=== PATIENT | female | born 1955 | race Caucasian/White ===

== ENCOUNTER 2018-01-24 10:42 | Emergency (ER) | payer OTHER, SELFPAY ==
[2018-01-24 10:45] VITALS: BP 141/70; PULSE 72; RESP 14; TEMP 36.9; O2SAT 98; BMI 22.1
--- NOTE | 2018-01-24 12:28 | ED.DENTAL ---
HPI - Dental/Oral <Ana Mcfadden PA-C - Last Filed: 01/24/18 21:42> General Chief complaint: Dental/Oral Stated complaint: Throat pain r/o perionsilar abscess Time Seen by Provider: 01/24/18 11:44 Source: patient Mode of arrival: ambulatory Limitations: no limitations History of Present Illness HPI Narrative: This 62-year-old female states that she was sent by her PCP office today due to to concern for peritonsillar abscess. She states that she had a strep test there but was not told the results. She states that 4 days ago, she had onset of mild sore throat that progressively worsened. She noted that her uvula was swollen on the right side of her throat looks swollen. She states that this seemed quite a bit worse yesterday and she thinks it might have drained some overnight because it looks better today. She states that she has had some sinus pressure and a little bit of left-sided earache. She states that her voice has seemed lower and somewhat muffled, however she has not had any dyspnea, states that she is able to swallow normally though it is painful. She has not had any fever, chills, or sweats. She states she has a very mild dry cough like a ?tickle?, no wheezing or other new symptoms with this. She states that she was traveling on a road trip by car in the [facility] when this started, no other recent travel and no known exposures. Related Data Home Medications Medication Instructions Recorded Confirmed Allerclear 1 tab PO DIRECTED 01/24/18 01/24/18 Mood Free 1 dose PO DIRECTED 01/24/18 01/24/18 Vitamin B-12 1 tab PO DIRECTED 01/24/18 01/24/18 Vitamin D 1 tab PO DIRECTED 01/24/18 01/24/18 flaxseed oil 1 dose PO DIRECTED 01/24/18 01/24/18 Previous Rx's Medication Instructions Recorded clindamycin HCl 300 mg PO QID #40 cap 01/24/18 dexamethasone [Decadron] 4 mg PO Q12H #10 tab 01/24/18 Allergies Allergy/AdvReac Type Severity Reaction Status Date / Time Sulfa (Sulfonamide Allergy Intermediate Rash Unverified 01/24/18 12:48 Antibiotics) Review of Systems <TAYLOR Marrufo Last Filed: 01/24/18 21:42> Review of Systems All systems reviewed & are unremarkable except as noted in HPI and below Exam <Ana Mcfadden PA-C - Last Filed: 01/24/18 21:42> Narrative Exam Narrative: GENERAL APPEARANCE: Patient sitting comfortably, in no distress. Appears well. HEAD: Minimal generalized sinus TTP. EYES: PERRL, EOMI. EARS: Normal auditory canals, TMS intact with dull light reflexes. ORAL CAVITY: Normal oropharynx. THROAT: Erythematous on the right with edematous tonsil, no clear drainage or exudate, uvula is midline, left side is normal. Voice sounds slightly scratchy but not muffled on exam NECK/THYROID: Neck supple, full range of motion, few anterior cervical nodes LUNGS: Clear to auscultation bilaterally, no cough on exam. HEART: RRR without murmur, nl S1, S2, no S3 or S4. DERM: No exanthem EXTR: No cyanosis or edema Initial Vital Signs Initial Vital Signs: Vital Signs Temperature 98.4 F 01/24/18 10:45 Pulse Rate 72 01/24/18 10:45 Respiratory Rate 14 01/24/18 10:45 Blood Pressure 141/70 H 01/24/18 10:45 Pulse Oximetry 98 01/24/18 10:45 <Steph Hsu DO - Last Filed: 01/25/18 07:35> Initial Vital Signs Initial Vital Signs: Vital Signs Temperature 98.4 F 01/24/18 10:45 Pulse Rate 72 01/24/18 10:45 Respiratory Rate 14 01/24/18 10:45 Blood Pressure 141/70 H 01/24/18 10:45 Pulse Oximetry 98 01/24/18 10:45 Course <TAYLOR Marrufo Last Filed: 01/24/18 21:42> Additional Information: Patient was given IV clindamycin and Decadron here. She reported significant improvement, and tonsillar edema had improved at the time of discharge. She is agreeable with continuing antibiotics and steroids over the weekend and agrees to return if any acutely worsening symptoms, otherwise we have arranged for follow-up with [facility] on Saturday Orders Ordered: Discontinued Medications Clindamycin Phosphate (Cleocin) 900 mg in 50 mls @ 50 mls/hr IV NOW ONE Stop: 01/24/18 13:43 Last Infusion: 01/24/18 14:58 Dose: 0 mls/hr Admin: 01/24/18 13:48 Dose: 50 mls/hr Dexamethasone 20 mg/ Sodium (Chloride) 52 mls @ 208 mls/hr IV NOW ONE Stop: 01/24/18 12:45 Last Infusion: 01/24/18 13:47 Dose: 0 mls/hr Admin: 01/24/18 13:25 Dose: 208 mls/hr Sodium Chloride (Normal Saline 0.9%) 1,000 mls @ 1,000 mls/hr IV BOLUS ONE Stop: 01/24/18 13:43 Last Infusion: 01/24/18 15:08 Dose: 0 mls/hr Admin: 01/24/18 13:18 Dose: 1,000 mls/hr Ketorolac Tromethamine (Toradol) 15 mg IV NOW ONE Stop: 01/24/18 12:45 Last Admin: 01/24/18 13:19 Dose: 15 mg Vital Signs - 8 hr 01/24/18 14:51 Pulse Rate 61 Respiratory Rate 16 Blood Pressure [Right Arm] 115/71 Pulse Oximetry 100 <Steph Hsu, - Last Filed: 01/25/18 07:35> Orders Ordered: Discontinued Medications Clindamycin Phosphate (Cleocin) 900 mg in 50 mls @ 50 mls/hr IV NOW ONE Stop: 01/24/18 13:43 Last Infusion: 01/24/18 14:58 Dose: 0 mls/hr Admin: 01/24/18 13:48 Dose: 50 mls/hr Dexamethasone 20 mg/ Sodium (Chloride) 52 mls @ 208 mls/hr IV NOW ONE Stop: 01/24/18 12:45 Last Infusion: 01/24/18 13:47 Dose: 0 mls/hr Admin: 01/24/18 13:25 Dose: 208 mls/hr Sodium Chloride (Normal Saline 0.9%) 1,000 mls @ 1,000 mls/hr IV BOLUS ONE Stop: 01/24/18 13:43 Last Infusion: 01/24/18 15:08 Dose: 0 mls/hr Admin: 01/24/18 13:18 Dose: 1,000 mls/hr Ketorolac Tromethamine (Toradol) 15 mg IV NOW ONE Stop: 01/24/18 12:45 Last Admin: 01/24/18 13:19 Dose: 15 mg Vital Signs - 8 hr 01/24/18 14:51 Pulse Rate 61 Respiratory Rate 16 Blood Pressure [Right Arm] 115/71 Pulse Oximetry 100 MDM - Dental/Oral <Ana Mcfadden PA-C - Last Filed: 01/24/18 21:42> Lab Data Attestation: I reviewed the patient's lab results. Result diagrams: 01/24/18 13:01 01/24/18 13:01 Lab Results 01/24/18 01/24/18 Range/Units 13: 13:01 WBC 10.4 (4.5-11.0) X10^3/uL RBC 4.32 (4.0-5.2) X10^6/uL Hgb 13.0 (12.0-16.0) g/dL Hct 39.0 (36-46) % MCV 90.3 (80-100) fL MCH 30.2 (26-34) PG MCHC 33.4 (30-36) % RDW 12.9 (11.6-14.8) % Plt Count 169 (150-400) X10^3/uL Neut % (Auto) 78.2 H (50-75) % Lymph % (Auto) 13.8 L (25-40) % [place] % (Auto) 6.8 (3-14) % Eos % (Auto) 0.5 L (2-4) % Baso % (Auto) 0.7 (0-2) % Neut # (Auto) 8100 H (3865-6458) /uL Sodium 142 (137-145) mmol/L Potassium 4.1 (3.4-5.1) mmol/L Chloride 105 (98-107) mmol/L Carbon Dioxide 29 (22-32) mmol/L BUN 15 (7-17) mg/dL Creatinine 0.70 (0.52-1.04) mg/dL Estimated GFR > 60.0 (>60) mL/min BUN/Creatinine Ratio 21.4 (6-22) Glucose 87 (80-110) mg/dL Calcium 9.2 (8.4-10.2) mg/dL <Steph Hsu DO - Last Filed: 01/25/18 07:35> Lab Data Lab Results 01/24/18 01/24/18 Range/Units 13:01 13:01 WBC 10.4 (4.5-11.0) X10^3/uL RBC 4.32 (4.0-5.2) X10^6/uL Hgb 13.0 (12.0-16.0) g/dL Hct 39.0 (36-46) % MCV 90.3 (80-100) fL MCH 30.2 (26-34) PG MCHC 33.4 (30-36) % RDW 12.9 (11.6-14.8) % Plt Count 169 (150-400) X10^3/uL Neut % (Auto) 78.2 H (50-75) % Lymph % (Auto) 13.8 L (25-40) % [place] % (Auto) 6.8 (3-14) % Eos % (Auto) 0.5 L (2-4) % Baso % (Auto) 0.7 (0-2) % Neut # (Auto) 8100 H (0439-2678) /uL Sodium 142 (137-145) mmol/L Potassium 4.1 (3.4-5.1) mmol/L Chloride 105 (98-107) mmol/L Carbon Dioxide 29 (22-32) mmol/L BUN 15 (7-17) mg/dL Creatinine 0.70 (0.52-1.04) mg/dL Estimated GFR > 60.0 (>60) mL/min BUN/Creatinine Ratio 21.4 (6-22) Glucose 87 (80-110) mg/dL Calcium 9.2 (8.4-10.2) mg/dL Discharge Plan Departure Patient Disposition: Home, Self-Care Clinical Impression: Abscess, peritonsillar Discharge Date/Time: 01/24/18 15:23 Interventions: ED Discharge Assessment Last Done: 01/24/18 15:13 Instructions: DI for Peritonsillar Abscess -- Adult Activity Restrictions/Additional Instructions: You appear to be improving today, but please return to the closest ED as we discussed if you have any acutely worsening symptoms over the weekend. You have a follow-up scheduled at [facility] in [place], 1 o'clock check in on Saturday. Please be sure to bring your ID and insurance. You should take your next dose of oral antibiotic this evening and continued tomorrow morning. You can start the oral steroids tomorrow morning. Prescriptions: New clindamycin HCl 300 mg capsule 300 mg PO QID Qty: 40 RF: 0 dexamethasone [Decadron] 4 mg tablet 4 mg PO Q12H Qty: 10 RF: 0 No Action Allerclear 1 tab PO DIRECTED RF: 0 Mood Free 1 dose PO DIRECTED RF: 0 Vitamin B-12 1 tab PO DIRECTED RF: 0 Vitamin D 1 tab PO DIRECTED RF: 0 flaxseed oil 1 dose PO DIRECTED RF: 0 Referrals: [facility] [Provider Group] Emma Montgomery ARNP [Primary Care Provider] - <Steph Hsu DO - Last Filed: 01/25/18 07:35> Cosign ED Attending Chandrakant Attestation: I was immediately available in the department for consultation. Documentation has been reviewed. I agree with assessment and plan.
--- NOTE | 2018-01-24 12:51 | ED_ITS ---
HPI - Dental/Oral <Ana cMfadden PA-C - Last Filed: 01/24/18 21:42> General Chief complaint: Dental/Oral Stated complaint: Throat pain r/o perionsilar abscess Time Seen by Provider: 01/24/18 11:44 Source: patient Mode of arrival: ambulatory Limitations: no limitations History of Present Illness HPI Narrative: This 62-year-old female states that she was sent by her PCP office today due to to concern for peritonsillar abscess. She states that she had a strep test there but was not told the results. She states that 4 days ago , she had onset of mild sore throat that progressively worsened. She noted that her uvula was swollen on the right side of her throat looks swollen. She states that this seemed quite a bit worse yesterday and she thinks it might have drained some overnight because it looks better today. She states that she has had some sinus pressure and a little bit of left-sided earache. She states that her voice has seemed lower and somewhat muffled, however she has not had any dyspnea, states that she is able to swallow normally though it is painful. She has not had any fever, chills, or sweats. She states she has a very mild dry cough like a ?tickle?, no wheezing or other new symptoms with this. She states that she was traveling on a road trip by car in the [facility] when this started, no other recent travel and no known exposures. Related Data Home Medications Medication Instructions Recorded Confirmed Allerclear 1 tab PO DIRECTED 01/24/18 01/24/18 Mood Free 1 dose PO DIRECTED 01/24/18 01/24/18 Vitamin B-12 1 tab PO DIRECTED 01/24/18 01/24/18 Vitamin D 1 tab PO DIRECTED 01/24/18 01/24/18 flaxseed oil 1 dose PO DIRECTED 01/24/18 01/24/18 Previous Rx's Medication Instructions Recorded clindamycin HCl 300 mg PO QID #40 cap 01/24/18 dexamethasone [Decadron] 4 mg PO Q12H #10 tab 01/24/18 Allergies Allergy/AdvReac Type Severity Reaction Status Date / Time Sulfa (Sulfonamide Allergy Intermediate Rash Unverified 01/24/18 12:48 Antibiotics) Review of Systems <TAYLOR Marrufo Last Filed: 01/24/18 21:42> Review of Systems All systems reviewed & are unremarkable except as noted in HPI and below Exam <Ana Mcfadden PA-C - Last Filed: 01/24/18 21:42> Narrative Exam Narrative: GENERAL APPEARANCE: Patient sitting comfortably, in no distress. Appears well. HEAD: Minimal generalized sinus TTP. EYES: PERRL, EOMI. EARS: Normal auditory canals, TMS intact with dull light reflexes. ORAL CAVITY: Normal oropharynx. THROAT: Erythematous on the right with edematous tonsil, no clear drainage or exudate, uvula is midline, left side is normal. Voice sounds slightly scratchy but not muffled on exam NECK/THYROID: Neck supple, full range of motion, few anterior cervical nodes LUNGS: Clear to auscultation bilaterally, no cough on exam. HEART: RRR without murmur, nl S1, S2, no S3 or S4. DERM: No exanthem EXTR: No cyanosis or edema Initial Vital Signs Initial Vital Signs: Vital Signs Temperature 98.4 F 01/24/18 10:45 Pulse Rate 72 01/24/18 10:45 Respiratory Rate 14 01/24/18 10:45 Blood Pressure 141/70 H 01/24/18 10:45 Pulse Oximetry 98 01/24/18 10:45 <Steph Hsu DO - Last Filed: 01/25/18 07:35> Initial Vital Signs Initial Vital Signs: Vital Signs Temperature 98.4 F 01/24/18 10:45 Pulse Rate 72 01/24/18 10:45 Respiratory Rate 14 01/24/18 10:45 Blood Pressure 141/70 H 01/24/18 10:45 Pulse Oximetry 98 01/24/18 10:45 Course <TAYLOR Marrufo Last Filed: 01/24/18 21:42> Additional Information: Patient was given IV clindamycin and Decadron here. She reported significant improvement, and tonsillar edema had improved at the time of discharge. She is agreeable with continuing antibiotics and steroids over the weekend and agrees to return if any acutely worsening symptoms, otherwise we have arranged for follow-up with [facility] on Saturday Orders Ordered: Discontinued Medications Clindamycin Phosphate (Cleocin) 900 mg in 50 mls @ 50 mls/hr IV NOW ONE Stop: 01/24/18 13:43 Last Infusion: 01/24/18 14:58 Dose: 0 mls/hr Admin: 01/24/18 13:48 Dose: 50 mls/hr Dexamethasone 20 mg/ Sodium (Chloride) 52 mls @ 208 mls/hr IV NOW ONE Stop: 01/24/18 12:45 Last Infusion: 01/24/18 13:47 Dose: 0 mls/hr Admin: 01/24/18 13:25 Dose: 208 mls/hr Sodium Chloride (Normal Saline 0.9%) 1,000 mls @ 1,000 mls/hr IV BOLUS ONE Stop: 01/24/18 13:43 Last Infusion: 01/24/18 15:08 Dose: 0 mls/hr Admin: 01/24/18 13:18 Dose: 1,000 mls/hr Ketorolac Tromethamine (Toradol) 15 mg IV NOW ONE Stop: 01/24/18 12:45 Last Admin: 01/24/18 13:19 Dose: 15 mg Vital Signs - 8 hr 01/24/18 14:51 Pulse Rate 61 Respiratory Rate 16 Blood Pressure [Right Arm] 115/71 Pulse Oximetry 100 <Steph Hsu, - Last Filed: 01/25/18 07:35> Orders Ordered: Discontinued Medications Clindamycin Phosphate (Cleocin) 900 mg in 50 mls @ 50 mls/hr IV NOW ONE Stop: 01/24/18 13:43 Last Infusion: 01/24/18 14:58 Dose: 0 mls/hr Admin: 01/24/18 13:48 Dose: 50 mls/hr Dexamethasone 20 mg/ Sodium (Chloride) 52 mls @ 208 mls/hr IV NOW ONE Stop: 01/24/18 12:45 Last Infusion: 01/24/18 13:47 Dose: 0 mls/hr Admin: 01/24/18 13:25 Dose: 208 mls/hr Sodium Chloride (Normal Saline 0.9%) 1,000 mls @ 1,000 mls/hr IV BOLUS ONE Stop: 01/24/18 13:43 Last Infusion: 01/24/18 15:08 Dose: 0 mls/hr Admin: 01/24/18 13:18 Dose: 1,000 mls/hr Ketorolac Tromethamine (Toradol) 15 mg IV NOW ONE Stop: 01/24/18 12:45 Last Admin: 01/24/18 13:19 Dose: 15 mg Vital Signs - 8 hr 01/24/18 14:51 Pulse Rate 61 Respiratory Rate 16 Blood Pressure [Right Arm] 115/71 Pulse Oximetry 100 MDM - Dental/Oral <Ana Mcfadden PA-C - Last Filed: 01/24/18 21:42> Lab Data Attestation: I reviewed the patient's lab results. Result diagrams: 01/24/18 13:01 01/24/18 13:01 Lab Results 01/24/18 01/24/18 Range/Units 13: 13:01 WBC 10.4 (4.5-11.0) X10^3/uL RBC 4.32 (4.0-5.2) X10^6/uL Hgb 13.0 (12.0-16.0) g/dL Hct 39.0 (36-46) % MCV 90.3 (80-100) fL MCH 30.2 (26-34) PG MCHC 33.4 (30-36) % RDW 12.9 (11.6-14.8) % Plt Count 169 (150-400) X10^3/uL Neut % (Auto) 78.2 H (50-75) % Lymph % (Auto) 13.8 L (25-40) % [place] % (Auto) 6.8 (3-14) % Eos % (Auto) 0.5 L (2-4) % Baso % (Auto) 0.7 (0-2) % Neut # (Auto) 8100 H (2635-9138) /uL Sodium 142 (137-145) mmol/L Potassium 4.1 (3.4-5.1) mmol/L Chloride 105 (98-107) mmol/L Carbon Dioxide 29 (22-32) mmol/L BUN 15 (7-17) mg/dL Creatinine 0.70 (0.52-1.04) mg/dL Estimated GFR > 60.0 (>60) mL/min BUN/Creatinine Ratio 21.4 (6-22) Glucose 87 (80-110) mg/dL Calcium 9.2 (8.4-10.2) mg/dL <Steph Hsu DO - Last Filed: 01/25/18 07:35> Lab Data Lab Results 01/24/18 01/24/18 Range/Units 13:01 13:01 WBC 10.4 (4.5-11.0) X10^3/uL RBC 4.32 (4.0-5.2) X10^6/uL Hgb 13.0 (12.0-16.0) g/dL Hct 39.0 (36-46) % MCV 90.3 (80-100) fL MCH 30.2 (26-34) PG MCHC 33.4 (30-36) % RDW 12.9 (11.6-14.8) % Plt Count 169 (150-400) X10^3/uL Neut % (Auto) 78.2 H (50-75) % Lymph % (Auto) 13.8 L (25-40) % [place] % (Auto) 6.8 (3-14) % Eos % (Auto) 0.5 L (2-4) % Baso % (Auto) 0.7 (0-2) % Neut # (Auto) 8100 H (0602-8278) /uL Sodium 142 (137-145) mmol/L Potassium 4.1 (3.4-5.1) mmol/L Chloride 105 (98-107) mmol/L Carbon Dioxide 29 (22-32) mmol/L BUN 15 (7-17) mg/dL Creatinine 0.70 (0.52-1.04) mg/dL Estimated GFR > 60.0 (>60) mL/min BUN/Creatinine Ratio 21.4 (6-22) Glucose 87 (80-110) mg/dL Calcium 9.2 (8.4-10.2) mg/dL Discharge Plan Departure Patient Disposition: Home, Self-Care Clinical Impression: Abscess, peritonsillar Discharge Date/Time: 01/24/18 15:23 Interventions: ED Discharge Assessment Last Done: 01/24/18 15:13 Instructions: DI for Peritonsillar Abscess -- Adult Activity Restrictions/Additional Instructions: You appear to be improving today, but please return to the closest ED as we discussed if you have any acutely worsening symptoms over the weekend. You have a follow-up scheduled at [facility] in [place], 1 o' clock check in on Saturday. Please be sure to bring your ID and insurance. You should take your next dose of oral antibiotic this evening and continued tomorrow morning. You can start the oral steroids tomorrow morning. Prescriptions: New clindamycin HCl 300 mg capsule 300 mg PO QID Qty: 40 RF: 0 dexamethasone [Decadron] 4 mg tablet 4 mg PO Q12H Qty: 10 RF: 0 No Action Allerclear 1 tab PO DIRECTED RF: 0 Mood Free 1 dose PO DIRECTED RF: 0 Vitamin B-12 1 tab PO DIRECTED RF: 0 Vitamin D 1 tab PO DIRECTED RF: 0 flaxseed oil 1 dose PO DIRECTED RF: 0 Referrals: [facility] [Provider Group] Emma Montgomery ARNP [Primary Care Provider] - <Steph Hsu DO - Last Filed: 01/25/18 07:35> Cosign ED Attending Chandrakant Attestation: I was immediately available in the department for consultation. Documentation has been reviewed. I agree with assessment and plan.
[2018-01-24 13:09] LABS: Add Manual Diff / Slide Review NO; Basophils Percent Auto 0.7 % (0-2); Eosinophils Percent Auto 0.5 % (2-4); Lymphocytes Percent Auto 13.8 % (25-40); Mean Corpuscular HGB Conc 33.4 % (30-36); Mean Corpuscular Hemoglobin 30.2 PG (26-34); Mean Corpuscular Volume 90.3 fL (80-100); Monocytes Percent Auto 6.8 % (3-14); Neutrophils Absolute Auto 8100 /uL (3000-5900); Neutrophils Percent Auto 78.2 % (50-75); Platelet Count 169 X10^3/uL (150-400); Red Blood Cell Count 4.32 X10^6/uL (4.0-5.2); Red Cell Distribution Width 12.9 % (11.6-14.8); White Blood Cell Count 10.4 X10^3/uL (4.5-11.0)
[2018-01-24] MEDS: SODIUM CHLORIDE 0.9% 1,000 ML 1000 ML IV (13:18)
[2018-01-24] MEDS: KETOROLAC 15 MG/ML VIAL IV (13:19)
[2018-01-24 13:24] LABS: BUN Creatinine Ratio 21.4 (6-22); Blood Urea Nitrogen 15 mg/dL (7-17); Calcium 9.2 mg/dL (8.4-10.2); Carbon Dioxide 29 mmol/L (22-32); Chloride 105 mmol/L (98-107); Estimated Glomerular Filt Rate > 60.0 mL/min (>60); Glucose 87 mg/dL (80-110); HEMOLYSIS < 15 (0-50); Potassium 4.1 mmol/L (3.4-5.1); Sodium 142 mmol/L (137-145)
[2018-01-24] MEDS: DEXAMETHASONE 20 MG in SODIUM CHLORIDE 0.9% 50 ML 208 ML IV (13:25)
[2018-01-24] MEDS: CLINDAMYCIN 900 MG/50 ML PIGGYBACK 50 MG IV (13:48)
--- NOTE | 2018-01-24 14:22 | PC.NURSE ---
Placed call to [facility].- Spoke to front line leader regarding pt's strep test results. Received Negative result via fax. [employer] [facility] calling back to advise office that pt will need ENT follow up appt. Pt has [employer] and will need prior authorization.
--- NOTE | 2018-01-24 14:46 | PC.NURSE ---
[facility] called ENT office to make an appt for pt--SaturdayJanuary 27 at 1300. pt aware and provided with appt date, time, phone number, and what items to bring. Advised to call when they open that morning and verify address since there are two ENT offices in . Pt understands. IV Abx infusing with fluids. Pt reading magazine on stretcher, NAD and needs met at this time.
[2018-01-24 14:51] VITALS: BP 115/71; PULSE 61; RESP 16; O2SAT 100
== END 2018-01-24 15:23 | disposition home or self-care (01) ==
PROVIDERS: Emergency Provider Internal Medicine; Family Provider Nurse Practitioner Family; PCP Nurse Practitioner Family
DX: J36 Peritonsillar abscess (principal)
CPT/HCPCS: 36591; 80048; 85025; 87880; 96374; 96375; 99283; J1100; J1885

== ENCOUNTER → 2018-11-05 17:44 | Outpatient (CLI) | payer OTHER, SELFPAY ==
--- NOTE | 2018-11-05 | DI.RAD.S_ITS ---
PROCEDURE: XR CERVICAL SPINE 2V OR 3V INDICATIONS: NECK STRAIN TECHNIQUE: 3 view(s) of the cervical spine were acquired. COMPARISON: None. FINDINGS: Bones: No fractures or dislocations to the T1 level. The lateral masses of C1 appear intact on the odontoid view. No suspicious bony lesions. There is a moderate degree of degenerative disc disease at C3-4 and a moderately severe degree of degenerative disc disease to the T7 level. This is best seen on the lateral view. Facet osteoarthritis is moderate over these same areas. Soft tissues: No prevertebral soft tissue swelling. 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 No trauma found. No significant subluxation associated. Dictated by: Garrick Jackson M.D. on 11/06/2018 at 9:21 Approved by: Garrick Jackson M.D. on 11/06/2018 at 9:22
== END ==
PROVIDERS: Family Provider Nurse Practitioner Family; PCP Nurse Practitioner Family; Visit Provider Family Medicine
DX: S16.1XXA Strain of muscle, fascia and tendon at neck level, initial encounter (principal); M50.31 Other cervical disc degeneration, high cervical region; M47.812 Spondylosis without myelopathy or radiculopathy, cervical region
CPT/HCPCS: 72040

== ENCOUNTER → 2019-03-10 16:39 | Outpatient (CLI) | payer OTHER, SELFPAY ==
--- NOTE | 2019-03-10 | DI.RAD.S_ITS ---
PROCEDURE: XR T AND L SPINE 2 TO 3 VIEWS INDICATIONS: THORACIC BACK PAIN/SPINAL CURVATURE TECHNIQUE: 2 views acquired of the thoracolumbar spine. COMPARISON: None. FINDINGS: Bones: There are moderate multilevel degenerative changes of the thoracolumbar spine, worst in the lumbar region. There is levoscoliosis of the lumbar spine centered at L2 with a measured Sarkar angle of 23?. Soft tissues: Metallic densities project over the lower chest, midabdomen, and lower pelvis. IMPRESSION: 1. Moderate multilevel degenerative changes of the thoracolumbar spine. 2. Lumbar levoscoliosis with Sarkar angle of 23?. Dictated by: George Chew M.D. on 03/11/2019 at 11:32 Approved by: George Chew M.D. on 03/11/2019 at 11:38
== END ==
PROVIDERS: PCP Nurse Practitioner Family; Visit Provider Nurse Practitioner Family
DX: M54.5 Low back pain (principal); M43.9 Deforming dorsopathy, unspecified
CPT/HCPCS: 72082

== ENCOUNTER → 2019-05-25 15:44 | Outpatient (CLI) | payer OTHER, SELFPAY ==
--- NOTE | 2019-05-25 | DI.MRI.S_ITS ---
PROCEDURE: MR CERVICAL SPINE WO CON INDICATIONS: Neck pain TECHNIQUE: Noncontrast sagittal T1 spin echo and T2 fast spin echo, sagittal STIR, foraminal oblique sagittal T2 fast spin echo, and axial gradient echo or T2 fast spin echo through the cervical spine. COMPARISON: None. FINDINGS: Image quality: Excellent. Alignment and Curvature: There is loss of normal cervical lordosis. There is mild kyphosis at C3-C5. There is mild grade 1 retrolisthesis of C4 on C5. Mild grade 1 anterolisthesis of C7 on T1 and T1 on T2. Bone Marrow: Marrow demonstrates normal overall signal. There is mild reactive signal within the endplates adjacent to the C3-C4, C4-C5, C5-C6, and C6-C7 intervertebral discs. Spinal Cord: Visualized spinal cord has normal size and signal. No cerebellar tonsillar herniation. Paraspinous Soft Tissues: No paravertebral masses. Prevertebral soft tissues are normal in thickness. C2-C3: Moderate disc desiccation. Moderate left and mild right facet hypertrophy. No significant canal stenosis. Moderate left foraminal stenosis. No right foraminal stenosis. C3-C4: Moderate disc height loss and desiccation. Moderate diffuse disc bulge/osteophyte. Moderate facet and uncovertebral hypertrophy bilaterally, left greater than right. Moderate canal stenosis. Moderate left and mild right foraminal stenosis. C4-C5: Moderate disc height loss and desiccation. Moderate diffuse disc bulge/osteophyte. Moderate facet and uncovertebral hypertrophy bilaterally. Severe canal stenosis. Mild cord flattening. Severe bilateral foraminal stenosis. Bilateral C5 nerve root compression. C5-C6: Moderate disc height loss and desiccation. Mild diffuse disc bulge/osteophyte. Mild facet and uncovertebral hypertrophy bilaterally. Moderate canal stenosis. Severe left and moderate right foraminal stenosis. Left C6 nerve root compression. C6-C7: Severe disc height loss and desiccation. Moderate diffuse disc bulge. Mild facet and uncovertebral hypertrophy bilaterally. Moderate canal stenosis. Severe bilateral foraminal stenosis. Bilateral C7 nerve root compression. C7-T1: Moderate disc height loss and desiccation. Mild diffuse disc bulge. Mild facet and uncovertebral hypertrophy bilaterally. Mild canal stenosis. Moderate left greater than right foraminal stenosis. IMPRESSION: 1. Multilevel degenerative disc and facet disease, as well as uncovertebral hypertrophy. 2. Multilevel canal stenoses, worst at C4-C5, where there is cord flattening present. 3. Multilevel foraminal stenoses, worst at C4-C5, C5-C6, and C6-C7 where there is associated intraforaminal nerve root compression. Dictated by: Elin Johns M.D. on 05/25/2019 at 16:49 Approved by: Elin Johns M.D. on 05/25/2019 at 16:53
== END ==
PROVIDERS: Family Provider Nurse Practitioner Family; PCP Nurse Practitioner Family; Visit Provider Family Medicine
DX: M50.31 Other cervical disc degeneration, high cervical region (principal); M48.02 Spinal stenosis, cervical region; S13.4XXA Sprain of ligaments of cervical spine, initial encounter
CPT/HCPCS: 72141

== ENCOUNTER → 2020-01-19 16:01 | Outpatient (CLI) | payer OTHER, SELFPAY ==
--- NOTE | 2020-01-19 16:10 | DI.ECHO.S_ITS ---
Echocardiogram Report + + :Name: TWILA MOE Study Date: 01/19/2020 Height: 74 in : [facility] Weight: 157 lb : : Gender: Female BSA: 2.0 m2 : :: 1955 Age: 64 yrs BP: 107/80 mmHg: :Reason For Study: Murmur : :Ordering Physician: Laila Nolan Performed By: Sobia Page : + + Interpretation Summary The left ventricle is normal in size, wall thickness, and systolic function without any focal wall motion abnormalities. The ejection fraction is estimated to be 60-65%. Diastolic parameters suggest probable normal left ventricular diastolic function and normal filling pressures. The right ventricle is normal in size and function. The right ventricular systolic pressure is estimated to be at least 34 mmHg based on an estimated right atrial pressure of 8 mm Hg. Both atria are mildly dilated. There is no significant valvular heart disease. The aortic root is normal size. Procedure: A two-dimensional transthoracic echocardiogram with color flow and Doppler was performed. The study quality was technically adequate. There is no prior echocardiogram noted for this patient. The patient was in sinus bradycardia with heart rates between 49-59 bpm during the exam. Left Ventricle: The left ventricle is normal in size, wall thickness, and systolic function without any focal wall motion abnormalities. The ejection fraction is estimated to be 60-65%. Diastolic parameters suggest probable normal left ventricular diastolic function and normal filling pressures. Right Ventricle: The right ventricle is normal in size and function. Atria: Both atria are mildly dilated. There is no Doppler evidence for an interatrial shunt. Mitral Valve: The mitral valve is normal in structure and function. There is trace mitral regurgitation. Aortic Valve: The aortic valve is trileaflet. The aortic valve opens well. No aortic regurgitation is present. Tricuspid Valve: The tricuspid valve is normal in structure and function. There is trace tricuspid regurgitation. The right ventricular systolic pressure is estimated to be at least 34 mmHg based on an estimated right atrial pressure of 8 mm Hg. Pulmonic Valve: The pulmonic valve is not well seen, but is grossly normal. There is a trace or physiologic amount of pulmonic regurgitation. There is no significant valvular heart disease. Great Vessels: The aortic root is normal size. The ascending aorta is normal in size. The pulmonary artery is normal size. The IVC is dilated (diameter is greater than 2.1 cm) yet it collapses greater than 50% with a sniff. This suggests a right atrial pressure of 8 mm Hg. Pericardium/ Pleura There is a trivial pericardial effusion noted. There is no pleural effusion. MMode/2D Measurements & Calculations LVIDd: 5.1 cm LVOT diam: 2.1 cm LVIDs: 3.4 cm Ao root diam: 3.2 cm FS: 32.6 % asc Aorta Diam: 2.9 cm IVSd: 0.60 cm LVPWd: 0.80 cm LV grayson. diameter/BSA (cm/m^2): 2.6 LV sys. diameter/BSA (cm/m^2): 1.8 LA A2 area: 22.8 cm2 RA long axis: 5.4 cm LA A4 area: 22.2 cm2 RA area: 20.8 cm2 LA length (vol): 5.4 cm RA vol: 67.9 ml LA vol: 79.0 ml RA : 34.6 ml/m2 LA vol index: 40.3 ml/m2 IVC diam: 2.2 cm RVD1 (basal): 4.1 cm TAPSE: 3.3 cm Doppler Measurements & Calculations Ao V2 max: 154.2 cm/sec LVOT Max Beau: 97.0 cm/sec Ao V2 mean: 103.4 cm/sec LV V1 max P.8 mmHg Ao max P.5 mmHg LV V1 VTI: 22.2 cm Ao mean P.8 mmHg KALI(I,D): 2.1 cm2 Ao V2 VTI: 34.8 cm KALI(V,D): 2.1 cm2 sev ratio: 0.64 KALI indexed to BSA (cm^2/m^2): 1.1 MV E max beau: 87.0 cm/sec TR max beau: 252.4 cm/sec MV A max beau: 61.3 cm/sec TR max P.5 mmHg MV E/A: 1.4 PA V2 max: 110.3 cm/sec Med Peak E' Beau: 9.8 cm/sec PA V2 mean: 74.6 cm/sec E/E' med: 8.8 PA mean P.5 mmHg Lat Peak E' Beau: 9.2 cm/sec PA Accel Time: 0.09 sec E/E' lat: 9.5 E/e' average: 9.2 MV dec time: 0.19 sec SV([facility]): 74.0 ml Reading Physician:05:40 PM
== END ==
PROVIDERS: Family Provider Nurse Practitioner Family; PCP Internal Medicine; Referring Provider Internal Medicine; Visit Provider Internal Medicine
DX: R01.1 Cardiac murmur, unspecified (principal)
CPT/HCPCS: 93306

== ENCOUNTER → 2020-02-12 10:09 | Outpatient (CLI) | payer OTHER, SELFPAY ==
[2020-02-14 02:27] LABS: COVID19 Sendout Not Detected (Not Detect)
== END ==
PROVIDERS: Family Provider Nurse Practitioner Family; PCP Internal Medicine; Visit Provider Physician Assistant
DX: Z01.818 Encounter for other preprocedural examination (principal)
CPT/HCPCS: 87635

== ENCOUNTER 2020-02-15 06:12 | Inpatient (IN) | payer OTHER, SELFPAY ==
[2020-02-08 09:46] VITALS: BMI 22.4
[2020-02-15] VITALS (20 sets, daily range): BP systolic 101–137; BP diastolic 64–77; PULSE 54–69; RESP 8–24; TEMP 36.1–36.4; O2SAT 93–99; BMI 22.4
[2020-02-15] MEDS: LACTATED RINGERS 1,000 ML 100 ML IV ×2 (07:03→09:38)
--- NOTE | 2020-02-15 07:46 | PM.PREOP ---
Pre-operative Note COVID-19 COVID-19 status: Negative Result date/Date tested (Pos, Neg/Pending): 02/13/20 Interval Note History & Physical reviewed/Exam performed by Physician: Yes Changes to H&P: No
[2020-02-15] MEDS: CEFAZOLIN 2 GM/100 ML FROZ.PIGGY IV ×2 (07:50→12:57)
--- NOTE | 2020-02-15 08:00 | DI.RAD.S_ITS ---
PROCEDURE: XR LUMBAR SPINE 2-3V INDICATIONS: L1-2, L2-3, L3-4 TLIF TECHNIQUE: To views of the lumbar spine were acquired. COMPARISON: None. FINDINGS: Bones: Immediate postoperative evaluation, documenting normal alignment after placement of transverse pedicle screws and vertical fixation rods crossing from L1 through L4, with interbody disc cage prosthesis devices at the 3 intervening disc levels. No suspicious bony lesions. Soft tissues: Overlying bowel gas pattern is normal. No suspicious soft tissue calcifications. IMPRESSION: Normal alignment is stab wished after L1 through L4 fusion procedure with interbody disc prosthesis devices as noted. Dictated by: Garrick Jackson M.D. on 02/15/2020 at 14:05 Approved by: Garrick Jackson M.D. on 02/15/2020 at 14:07
--- NOTE | 2020-02-15 08:23 | SUR.OPER ---
Prone on spine table, head in foam head support, padded chest and pelvic supports, gel pad at knees, lower legs supported by pillows; nipples, genitalia and toes free of pressure, arms secured on foam padded arm boards at <90 degrees abduction. Tape over blanket at thigh secured to table.
[2020-02-15] MEDS: BUPIVACAINE 0.25% W/ EPI 30 ML VIAL INJ (08:31)
[2020-02-15] MEDS: BUPIVACAINE LIPOSOME 266 MG/20 ML VIAL INJ (08:32)
[2020-02-15] MEDS: ACETAMINOPHEN IV 1,000 MG/100 ML VIAL 400 MG IV (08:35)
--- NOTE | 2020-02-15 12:46 | CM.DANOTE ---
DCP: Case received, EMR reviewed. Patient is not yet admitted to the floor, is in surgery. Completed DCP assessment based on information available in patient's H&P. Went ahead and updated white board in patient's room with DC planning name and extension. Patient is a 64 year old female who admitted early this morning to the care of the orthopedic team. PCP: DEBORAH Catalan. Payer: confirmed: [facility]. Patient came to the hospital via private vehicle for a surgical procedure. She is having L1-2, L2-3, and L3-4 TLIF. Patient has history of scoliosis, as well as chronic back and leg pain. According to notes, patient does nut use DME supplies at baseline, and that pain has affected her ADLS. Patient is currently in surgery, but it is noted that she resides in [place] with her spouse, Carlos. She is currently employed at [place] [employer]. P: DCP to follow closely for any needs. Can check in with her tomorrow to see how she is doing post-op. Angela Geller RN/Pre K Lead Teacher
--- NOTE | 2020-02-15 13:22 | PM.OP.1 ---
Operative Date/Time/Diagnoses Date of procedure: 02/15/20 Time of procedure: 07:49 Pre-op diagnosis: 1. Lumbar scoliosis 2. Lumbar spondylolisthesis L1-2, L2-3, L3-4 3. Lumbar spinal stenosis with radiculopathy Post-op diagnosis: same Procedure & Clinicians Procedure: 1. L1-2, L2-3, L3-4 Postero-lateral and posterior interbody fusion 2. L1-2, L2-3, L3-4 interbody cage placement. 3. L1-2, L2-3, L3-4 decompressive laminectomy with bilateral facetecomies 4. L1-2, L2-3, L3-4 Posterior segmental instrumentation 5. [place] of bone marrow from iliac crest 6. Utilization of microsurgical technique and operating microscope Same procedure as scheduled: Yes Indications: Patient has been having chronic back pain and worsening lumbar radiculopathy. Patient failed multiple conservative management with worsening pain weakness and numbness in her lower extremity. Patient has been having difficulty performing activity of daily living. After discussing risks benefits of treatment options, patient elected proceed with surgery. Surgeon: Calista Perez Injection Molding Supervisor: Bing Gaytan Click Yes if Unassisted: No Anesthesia Type: General Operative Notes Closure Type: primary Specimen(s): none sent Prosthetic devices, grafts, tissues, transplants, or devices: Globus revolve screws, Rise cages Applied: catheter Estimated Blood Loss (mL): 200 Blood products transfused: none Procedure in detail: Patient was seen in the preoperative area. Risks and benefits of the surgery was discussed with the patient. Informed consent was obtained from the patient and placed in the chart. Surgical site was marked. Patient was taken to the operative room. General anesthesia was administered. Prophylactic antibiotic was given to the patient less than 30 min before the incision was made. Patient was placed into a prone position on the Sivakumar table. Patient's back was then prepped and draped in the sterile fashion. Time-out was performed at this time. Using AP and lateral C-arm imaging the interval between L1-4 was identified and marked on patient's back. A 3 inch incision 2 in from midline was made on the left side first. The fascia was incised in line with skin incision. Globus MARS retractors was placed inside the incision and docked onto the L1, L2 and L3 lamina. Using microsurgical technique and operating microscope, a L1, L2 and L3 laminectomy and L1-2, L2-3, L3-4 facetectomy was performed using a [place] rongeur. Patient was found have severe central and neural foramen stenosis which was fully decompressed after the laminectomy facetectomy was completed at all 3 levels. The disc space at L1-2, L2-3, L3-4 was identified. And a total diskectomy was performed at L1-2, L2-3, L3-4 level. The endplates were decorticated using a rasp and shaver. The total diskectomy and decortication was performed at L1-2, L2-3, L3-4 level in order to to accomplish a L1-2, L2-3, L3-4 fusion. The local bone from the laminectomy and facetectomy was saved for local bone grafting. After the total diskectomy and decortication was completed, Trifecta bone graft material was combined with local bone that was harvested earlier. At this time, a separate skin is incision was made over the iliac crest. A Jamshidi needle was inserted into the iliac crest through a separate skin incision. 5 cc of bone marrow aspiration was obtained through the separate skin incision using a Jamshidi needle from the iliac crest. The bone marrow aspiration was combined with local bone and the Trifecta bone grafting material. The bone grafting material was placed into the L1-2, L2-3, L3-4 interbody space along with three cages, one expandable cage at each level. The cages were expanded to their maximum height using the torque limiting screwdriver. At this time a mirror image incision was made on the right side. The fascia was incised in line with the skin incision. Globus MARS retractor was inserted and docked onto the L1-2, L2-3, L3-4 posterolateral gutter. Using the power drill, posterior-lateral decortication was performed at L1-2, L2-3, L3-4 level until bleeding cortical bone was identified. The remaining bone grafting material was placed into the L1-2, L2-3, L3-4 posterior lateral gutter he order to accomplish posterolateral fusion at the L1-2, L2-3, L3-4 levels. Using the double C-arm technique, pedicle screws were placed into the L1, L2, L3, L4 pedicles bilaterally. This was done by placing the Jamshidi needle into the pedicles, then placing the guidewires over the Jamshidi needle, and finally placing the cannulated screws over the guidewires bilaterally. After the pedicle screws were placed, 2 titanium rods was locked into the heads of the pedicle screws using locking caps and torque limiting screwdriver. Total 8 pedicles screws were placed. After all the hardware was placed, and confirmed with AP and lateral C-arm imaging, the wound was then irrigated with sterile normal saline and packed with Ray-John gauze for 3 min to accomplish hemostasis. After the gauze was removed the deep fascia was closed with #1 Vicryl suture. The subcutaneous layer was closed with 2-0 Vicryl. The skin was closed with skin yeimy. Patient tolerated the procedure well. There were no complications. Complications: none Post-operative Condition: stable Disposition: PACU Plan for aftercare: Admit to inpatient hospital
--- NOTE | 2020-02-15 13:29 | SUR.PHASEI ---
Received to PACU after general anesthesia. Oral airway in place. No further airway assistance required. Report received from ABDIRASHID Hernandez and Dr Holliday.
[2020-02-15] MEDS: fentaNYL 100 MCG/2 ML INJ IV (13:39)
--- NOTE | 2020-02-15 14:06 | SUR.PHASEI ---
CMS check of BLE: 2+ pedal pulses. Denies numbness or tingling. Weak-moderate dorsiflexion and plantar flexion.
--- NOTE | 2020-02-15 14:22 | SUR.PHASEI ---
Pt states she has tingling to BLE which she had preop. Dorsiflexion and plantar flexion are now strong. Pt states pain con't to be 6/10, but is comfortable for her. Pt sleeping unless awoken.
--- NOTE | 2020-02-15 14:48 | SUR.PHASEI ---
Discharge criteria met. Report called to Jennifer Rivas RN. Transferred to room 208 via bed with belongings. Received in room by Av Blake. Handoff completed.
[2020-02-15] MEDS: SODIUM CHLORIDE 0.9% 1,000 ML 100 ML IV (14:52)
[2020-02-15] MEDS: HYDROMORPHONE 0.5 MG INJ IV ×3 (14:53→21:33)
[2020-02-15] MEDS: ONDANSETRON 4 MG/2 ML INJ IV ×2 (15:15→21:41)
[2020-02-15] MEDS: OXYCODONE IR 5 MG TABLET 10 MG PO ×3 (16:31→23:25)
[2020-02-15 18:24] LABS: Bacteria Urine None Seen
[2020-02-15] MEDS: ACETAMINOPHEN 325 MG TABLET 650 MG PO (18:25)
[2020-02-15 18:26] LABS: Bilirubin Urine UA NEGATIVE (NEGATIVE); Color Urine UA YELLOW; Glucose Urine UA TRACE g/dL (Negative); Ketones Urine UA TRACE (NEGATIVE); Leukocyte Esterase Urine UA NEGATIVE (NEGATIVE); Nitrite Urine UA NEGATIVE (Negative); Occult Blood Urine UA NEGATIVE (Negative); Protein Urine UA NEGATIVE (Negative); Specific Gravity Urine UA 1.025 (1.000-1.035); Urobilinogen Urine UA 0.2 E.U./dL (0.2)
[2020-02-15 18:32] LABS: Appearance Urine UA Slightly Cloudy; Culture Indicated Urine Cult Not Indicated; RBC Urine 0-1/HPF (0-5/HPF); WBC Urine 0-1/HPF (0-5/HPF)
[2020-02-15] MEDS: DOCUSATE 100 MG CAPSULE PO (20:25)
[2020-02-15] MEDS: SENNOSIDES 8.6 MG TABLET 17.2 MG PO (20:25)
[2020-02-15] MEDS: CEFAZOLIN 1 GM/50 ML FROZ.PIGGY IV (21:29)
--- NOTE | 2020-02-15 22:34 | PC.NURSE ---
A&OX3. 99%RA. no chest pain or sob. cms+. not oob yet. able to log roll very well. calf scds. everette patent. around 2129 pt reports her L thigh is slightly numb. pedal pulses palpable. pain controlled with oxycodone and IV dilaudid. call light in reach. bed alarm active.
[2020-02-15] MEDS: hydrOXYzine pamoate 25 MG CAPSULE PO (23:25)
--- NOTE | 2020-02-15 23:39 | PC.NURSE ---
Addendum entered by Kathie Bhakta R.N. 02/16/20 04:53: Received Dilaudid around 0100 for pain and has been asleep since. Now states pain is better than earlier but rates severity as 7/10; medicated with Oxycodone. Declines repositioning. Original Note: Patient is alert and oriented. Breath sounds CTA with RA sat of 97%. HRR. Denies nausea. BT present but is not yet passing flatus. Indwelling catheter is patent; urine is clear yellow. Is able to turn in bed; requests assist as needed but does well with log rolling. Dressing to back with previously outlined shadow drainage; no increase noted. Complains of 8/10 burning/aching pain in back and right hip so medicated with Oxycodone + Vistaril. Complains of numbness still in right thigh and foot. Feet cool to touch but has good pedal pulses and movement. Wearing bilateral calf SCD's. Reports having fallen in past 3 months and fall risk score is high so bed alarm is activated.
[2020-02-16] MEDS: HYDROMORPHONE 0.5 MG INJ IV ×2 (00:57→10:19)
[2020-02-16] MEDS: SODIUM CHLORIDE 0.9% 1,000 ML 100 ML IV ×2 (00:58→10:36)
[2020-02-16] MEDS: CEFAZOLIN 1 GM/50 ML FROZ.PIGGY IV (04:45)
[2020-02-16] MEDS: OXYCODONE IR 5 MG TABLET 10 MG PO ×5 (04:47→19:23)
[2020-02-16 05:08] VITALS: BP 145/71; PULSE 68; RESP 18; TEMP 36.4; O2SAT 98
[2020-02-16] MEDS: LEVOTHYROXINE 50 MCG TABLET PO (05:52)
[2020-02-16 06:24] LABS: Hematocrit 32.9 % (36-46)
--- NOTE | 2020-02-16 07:32 | P.PN_ITS ---
Subjective Subjective Date Patient Seen: 02/16/20 Time Patient Seen: 07:32 Interval history: Patient was having moderate to severe pain as well as nausea yesterday evening. Pain this morning has been more mild to moderate. Nausea has cleared. No fever chills. Has not yet been up with physical therapy. Exam Vital Signs (past 8 hours): - 02/15/20 23:45 02/16/20 05:08 Temperature 97.6 F 97.6 F Pulse Rate 60 68 Respiratory Rate 18 18 Blood Pressure 127/68 145/71 H Pulse Oximetry 99 98 Oxygen Delivery Method Room Air Oxygen Flow Rate 0 Narrative Exam Narrative: Pleasant 64-year-old female resting comfortably in bed in no apparent distress. Scant drainage on the left side of the lumbar dressing. Motor functions intact bilateral lower extremities. Sensation grossly intact to light touch bilateral lower extremities. Both legs are warm and dry. Objective Labs Result Diagrams: 02/16/20 06:00 Labs: Laboratory Results - last 24 hr 02/15/20 02/16/20 16:35 06:00 Hgb 11.0 L Hct 32.9 L Urine Color Yellow Urine Appearance Slightly cloudy Urine pH 5.0 Ur Specific [place] 1.025 Urine Protein Negative Urine Glucose (UA) Trace H Urine Ketones Trace H Urine Occult Blood Negative Urine Nitrate Negative Urine Bilirubin Negative Urine Urobilinogen 0.2 Ur Leukocyte Esterase Negative Urine RBC 0-1/hpf Urine WBC 0-1/hpf Urine Bacteria None seen Ur Culture Indicated? Cult not indicated Assessment & Plan Post-op Postoperative Procedures: Procedures Operation Date: 02/15/20 07:45 Actual Procedures Side Surgeon p L1-2, L2-3, L3-4 TLIF w. posterior instrumentation Calista Perez MD Postop day 1. Patient progressing as expected. Mobilize with physical therapy. Possible discharge home later today or tomorrow. Quality VTE Deep Vein Thrombosis/Pulmonary Embolism Present on Admission: No
--- NOTE | 2020-02-16 08:33 | CM.DPC ---
DCP Cont: Checked in with patient. She was sitting up in bed, she has not yet worked with physical therapy. Stated, she has been planning on surgery since November. She is independent prior to surgery, and she is still working for the [employer] [place] [employer]. She resides outside of [place] with her spouse, Saleem. P: DCP to continue to follow and will be available for any need. She will be working with P.T. today. Angela Geller RN/Private Duty Lpn
[2020-02-16 08:45] VITALS: BP 139/64; PULSE 65; RESP 16; TEMP 36.6; O2SAT 98
[2020-02-16] MEDS: DOCUSATE 100 MG CAPSULE PO ×2 (08:45→21:28)
[2020-02-16] MEDS: ACETAMINOPHEN 325 MG TABLET 650 MG PO ×2 (08:46→21:28)
[2020-02-16] MEDS: ONDANSETRON 4 MG/2 ML INJ IV (10:24)
--- NOTE | 2020-02-16 11:08 | OT.IPNOTE ---
Pt in too much pain to be able to get up at this time and therefore initiated equipment needs and OT safety suggestions to pt No charge.
--- NOTE | 2020-02-16 11:08 | PC.NURSE ---
Shift summary: Alert and oriented X3. Dressing to mid low back dry/intact with shadow drainage within previously marked margins. Denies any new paresthesias, reports chronic numbness/tingling in RLE. Got up to the chair with PT, assisted back to bed by this telegraphic typewriter repairer after about 20-30 minutes per patient request (r/t pain). Rated pain 7/10 after working with therapy, so was given IV Dilaudid for breakthrough pain with good effect. Stand-by assist with FWW, log-rolled back into bed well with cueing. Medicated with Zofran for C/O slight nausea, IV fluids left running for now. BT+, denies passing flatus. Lungs CTA, HRR. Room air. Able to make needs known and calls appropriately. Light and belongings within reach, bed alarm on.
--- NOTE | 2020-02-16 11:10 | PT.IIE ---
Current Diagnoses Other forms of scoliosis, lumbar region (02/15/20) Spondylolisthesis, lumbar region (02/15/20) Spinal stenosis, lumbar region without neurogenic claudication (02/15/20) Surgery Performed Operation Date: 02/15/20 07:45 Actual Procedures p L1-2, L2-3, L3-4 TLIF w. posterior instrumentation - Calista Perez MD Surgical History (Last Updated 02/08/20 @ 10:19 by Lara Mohan RN) History of repair of left rotator cuff (Acute ~1988) S/P carpal tunnel release (Resolved) Status post left foot surgery (Resolved) Status post right foot surgery (Acute) Medical History (Last Updated 02/08/20 @ 10:19 by Lara Mohan RN) Arthritis (Acute) Depression (Acute) Easy bruisability (Acute) Heart murmur (Acute) Hypothyroid (Acute) Neck pain (Acute) Sciatica (Acute) Seasonal allergies (Acute) TMJ (dislocation of temporomandibular joint) (Acute) Ventricular ectopy (Acute) Physical Therapy Inpatient Evaluation/Re-Eval M1 PT/OT-IP Prior Functional Status Start: 02/16/20 08:25 Freq: NEEDED Status: Active Protocol: Document 02/16/20 09:06 AW (Rec: 02/16/20 09:18 AW [id number]) Medical Review Prior Functional Status Medical History Reviewed Yes Communication Pt is an effective verbal communicator Mobility and Gait Pt is IND with all mobility at baseline. She could walk up to 15 minutes but pain limited further activity. Activities of Daily Living and IADL's IND with dressing, toileting, showering tasks. Pt participates in cleaning, cooking, and shopping for home . 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 Prior Functional Level (Other details) Pt reports one fall in the last year. [place] and lost her balance. She was bruised but had no other injuries. Social History Household Members spouse Living Arrangements House Number of Floors (Floors) Two Floors Number of Stairs To Enter/Railing? Pt has a daylight basement but enteres on the main living level and has no need to access the basement. There are 3 MIA through the garage with right rail ascending. Pt has no grab bars around the toilet, but there is a windowsill on the right side that she can use to boost herself. 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 Her , Carlos , also works for the [employer]. He will not be returning to school until March at the earliest. He will be available and able to assist as needed. M2 PT-IP Current Condition Start: 02/16/20 08:25 Freq: NEEDED Status: Active Protocol: Document 02/16/20 10:48 AW (Rec: 02/16/20 11:10 AW [id number]) Physical Therapy Current Condition Current Condition Evaluation Date 02/16/20 Treatment Diagnosis s/p L1-2 L2-3 L3-4 TLIF; difficulty in walking Onset Date 02/15/20 Precautions Lumbar Precautions Log Roll,No Twisting,Limit Bending,Lifting Restriction of 10 lbs,Gait Belt above Incisional Area M3 PT-IP Subjective Start: 02/16/20 08:25 Freq: NEEDED Status: Active Protocol: Document 02/16/20 10:48 AW (Rec: 02/16/20 11:10 AW [id number]) Subjective Physical Therapy Visit Type Type Initial Evaluation Visit Start Time 08:58 Visit Stop Time 10:09 Total Visit Minutes 35 Notes split visit for med administration Physical Therapy Visit Comments Patient Comments Pt is willing to participate with PT Patient Goals Pt hopes to return home at d/c with spouse assist Therapy Pain Assessment Pain When Pain Assessed During Mobility Pain Present Pain Present Pain Reported Location back Intensity 9 Scale Used 7/10 at rest; 9/10 with mobility Description Burning Pain Behaviors Facial Grimacing,Guarding, Wincing Pain Management Techniques Re-positioning,Timing of Activity with Medications M4 PT-IP Mobility and Gait Start: 02/16/20 08:25 Freq: NEEDED Status: Active Protocol: Document 02/16/20 10:48 AW (Rec: 02/16/20 11:10 AW [id number]) PT-Bed Mobility Assessment Rolling Type of Rolling Log Rolling,Roll to Left Level of Assist Minimal Assistance,1 Person Assistance Supine to Sit Supine to Sit Minimal Assistance,1 Person Assistance Scooting Scooting to Edge of Bed Standby Assistance PT-Transfer Assessment Sit to and From Stand Sit to and from Stand Minimal Assistance,1 Person Assistance,Use of Upper Extremities Equipment Transfer Assistive Device Gait Belt,Front Wheeled Walker Orthotic/Prosthetic Devices or Brace: No Transfers Transfer Destination Chair Transfer Technique pt ambulated with FWW Transfer Ability Level of Assist Contact Guard Assistance,1 Person Assistance,Use of Upper Extremities Comments Mobility Comments PT reviewed back surgery precautions and then assisted with bed mobility. Pt required min A x 1 for log roll to her left side and sidelying to sit transition. She was then able to scoot toward EOB SBA and sit with UE support. Pt completed sit to stand min A x 1 and ambulated slowly around the room with FWW for a total of 30 feet with 4 standing rest breaks. PT provided cues for deep and diaphragmatic breathing as pt was noted with excessive use accessory muscles for respiration and with elevated shoulders. Pt ambulated to the chair with FWW CGA and transferred to the chair CGA and cues to use both hands on the chair arms for support and to maintain neutral spine. Pt was positioned on the chair with call light and all needs in reach. BP 143/73 HR 68 supine BP 129/76 HR 73 sitting BP 132/67 HR 73 after activity Gait Assessment Gait Gait Assistance Required: Contact Guard Assist Distance (Feet) 30 Able to Maintain Weight Bearing Status Yes During Gait Assistive Devices Assistive Device Gait Belt,Front Wheeled Walker Gait Deviations General Gait Pattern Antalgic,Decreased Stride Length,Decreased Feet Clearance,Flexed Trunk,Step-to Gait Factors Limiting Gait Function Factors Limiting Gait Function Decreased Activity Tolerance, Decreased Sensation,Decreased Strength,Limited Range of Motion,Pain,Poor Balance Comments Gait Comments See mobility comments for details. Stair Climbing Assessment Comments Stair Climbing Comments Not assessed. PT-Balance Assessment Sitting Balance and Reactions Static Sitting Balance Ability Normal Dynamic Sitting Balance Ability Good Standing Balance and Reactions Static Standing Balance Ability Good Dynamic Standing Balance Ability Good Device Used FWW M5 PT-IP Objective Assessments Start: 02/16/20 08:25 Freq: NEEDED Status: Active Protocol: Document 02/16/20 10:48 AW (Rec: 02/16/20 11:10 AW [id number]) Orientation Orientation/Cognition Level of Alertness Alert Orientation Name,Day of Week,Place, Situation Language Function Ability No Deficits Noted Safety Awareness Understands Safety Issues Memory Description No Deficits Noted Gross Range of Motion Upper Extremity ROM Assessment Within Functional Limits Lower Extremity ROM Assessment Within Functional Limits Strength Upper Extremity Strength Assessment Within Functional Limits Lower Extremity Strength Assessment Bilaterally Impaired Hip 3+/5 Knee 4+/5 Ankle 4+/5 Comments Strength Comments Limited exam due to pt guarding with hip assessment. Coordination Assessment Gross Coordination Gross Coordination WNL Sensation Assessment Sensation Gross Sensation Right LE Impaired Light Touch Impaired Sensation Description Numbness Comments Sensation Comments Pt has history of L LE impairment of light touch sensation with distal more affected than proximal. Pt currently reporting burning in right lower back and dull light touch sensation in right lateral hip and anterior thigh. Muscle Tone Muscle Tone WNL Yes M6 PT-IP Treatment Start: 02/16/20 08:25 Freq: NEEDED Status: Active Protocol: Document 02/16/20 10:48 AW (Rec: 02/16/20 11:10 AW [id number]) Physical Therapy Treatment Education Education Provided Precautions,Weight Bearing Status,Post-Op Packet,Safety Other Treatments Other Treatment Performed Provided education on role of PT, plan of care, post op spinal precautions, and safe use of FWW. M7 PT-IP Assessment and Plan Start: 02/16/20 08:25 Freq: NEEDED Status: Active Protocol: Document 02/16/20 10:48 AW (Rec: 02/16/20 11:10 AW [id number]) PT Summary Assessment and Plan Potential Rehabilitation Potential Good Status of Condition at Evaluation Evolving Summary Impairments Pain,ROM,Strength,Balance, Sensation,Bed Mobility, Transfers,Gait,Activity Tolerance Assessment Summary Ninoska is a 64 yo woman seen for PT evaluation on POD1 following multi-level TLIF. 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 On evaluation , she required CGA or min assist with all mobility and had limited tolerance. She is reporting new onset numbness in her right hip and anterior thigh as well as pain 7-9/10. She will benefit from continued acute PT and will likely be safe to discharge home with spouse assist once medically cleared. Pt will need to complete stair training prior to discharge. Goals Bed Mobility Goal Standby Assistance Transfer Goal Standby Assistance,Four Wheeled Walker Gait Goal Standby Assistance,Four Wheel Walker Gait Distance 200 Other Goals - up/down 3 steps with R rail ascending Days to Meet Goals 3 Frequency of Treatment Frequency Of Treatment Twice a Day Treatment Plan Physical Therapy Treatment Plan Bed Mobility Training,Transfer Training,Gait Training, Therapeutic Exercise,Balance Retraining,Post Op Education, Discharge Planning,Hot or Cold Pack,Neuromuscular Re-ed Other Recommendations and Next Treatment bed mobility, transfers, Focus assess gait with 4WW, stair training when able Recommendations To Nursing Amount of Assist Needed 1 Person Assist Discharge Recommendations PT Discharge Recommendations Home with Assistance Equipment Needed for Home Before FWW if unsafe with 4WW; shower Discharge chair Transportation Needs at Discharge Private Vehicle
[2020-02-16 12:30] VITALS: BP 117/77; PULSE 71; RESP 16; TEMP 36.6; O2SAT 95
--- NOTE | 2020-02-16 14:07 | PT.IPTN ---
Current Diagnoses Other forms of scoliosis, lumbar region (02/15/20) Spondylolisthesis, lumbar region (02/15/20) Spinal stenosis, lumbar region without neurogenic claudication (02/15/20) Surgery Performed Operation Date: 02/15/20 07:45 Actual Procedures p L1-2, L2-3, L3-4 TLIF w. posterior instrumentation - Calista Perez MD Physical Therapy Treatment Note M2 PT-IP Current Condition Start: 02/16/20 08:25 Freq: NEEDED Status: Active Protocol: Document 02/16/20 10:48 AW (Rec: 02/16/20 11:10 AW [id number]) Physical Therapy Current Condition Current Condition Evaluation Date 02/16/20 Treatment Diagnosis s/p L1-2 L2-3 L3-4 TLIF; difficulty in walking Onset Date 02/15/20 Precautions Lumbar Precautions Log Roll,No Twisting,Limit Bending,Lifting Restriction of 10 lbs,Gait Belt above Incisional Area M3 PT-IP Subjective Start: 02/16/20 08:25 Freq: NEEDED Status: Active Protocol: Document 02/16/20 13:54 AW (Rec: 02/16/20 14:07 AW [id number]) Subjective Physical Therapy Visit Type Type Treatment Note Visit Start Time 13:28 Visit Stop Time 13:52 Total Visit Minutes 24 Physical Therapy Visit Comments Patient Comments Pt is willing to participate with PT Therapy Pain Assessment Pain When Pain Assessed During Mobility Pain Present Pain Present Pain Reported Location back Intensity 6 Scale Used 5/10 at rest; 6/10 with mobility Pain Management Techniques Re-positioning,Timing of Activity with Medications M4 PT-IP Mobility and Gait Start: 02/16/20 08:25 Freq: NEEDED Status: Active Protocol: Document 02/16/20 13:54 AW (Rec: 02/16/20 14:07 AW [id number]) PT-Bed Mobility Assessment Rolling Type of Rolling Log Rolling,Roll to Left Level of Assist Contact Guard Assistance Supine to Sit Supine to Sit Contact Guard Assistance Sit to Supine Sit to Supine Contact Guard Assistance Scooting Scooting to Edge of Bed Standby Assistance PT-Transfer Assessment Sit to and From Stand Sit to and from Stand Contact Guard Assistance,Use of Upper Extremities Equipment Transfer Assistive Device Gait Belt,Front Wheeled Walker Orthotic/Prosthetic Devices or Brace: No Transfers Transfer Destination Bed Transfer Technique pt ambulated with FWW Transfer Ability Level of Assist Contact Guard Assistance,1 Person Assistance,Use of Upper Extremities Comments Mobility Comments Pt was able to recall 3/3 back precautions. She completed log roll to her left side and SL to sit transition CGA and cues for sequencing. She stood from the bed in its lowest position CGA and used the FWW to ambulate in the halls with improved chely and slightly improved speed t this PM. No need for rest breaks. Pt demonstrates good care and attention to back precautions while ambulating. She returned to the room and requested return to bed, requiring CGA and sequencing cues to complete sit to supine. Pt was positioned on the bed with bilat calf SCD's donned and bed alarm on for safety. Gait Assessment Gait Gait Assistance Required: Standby Assistance,Contact Guard Assist Distance (Feet) 75 Able to Maintain Weight Bearing Status Yes During Gait Assistive Devices Assistive Device Gait Belt,Front Wheeled Walker Gait Deviations General Gait Pattern Antalgic,Decreased Stride Length,Decreased Feet Clearance,Flexed Trunk Factors Limiting Gait Function Factors Limiting Gait Function Decreased Activity Tolerance, Decreased Sensation,Decreased Strength,Limited Range of Motion,Pain,Poor Balance Comments Gait Comments Pt was not ready to trial 4WW so used FWW with improved activity tolerance this PM. She required no rest breaks and had improved, regular chely. She remarked while walking that she could tell she was standing taller which she avoided prior to surgery due to pain in the left leg. Stair Climbing Assessment Comments Stair Climbing Comments Not assessed. PT-Balance Assessment Sitting Balance and Reactions Static Sitting Balance Ability Normal Dynamic Sitting Balance Ability Good Standing Balance and Reactions Static Standing Balance Ability Good Dynamic Standing Balance Ability Good Device Used FWW M5 PT-IP Objective Assessments Start: 02/16/20 08:25 Freq: NEEDED Status: Active Protocol: Document 02/16/20 10:48 AW (Rec: 02/16/20 11:10 AW [id number]) Orientation Orientation/Cognition Level of Alertness Alert Orientation Name,Day of Week,Place, Situation Language Function Ability No Deficits Noted Safety Awareness Understands Safety Issues Memory Description No Deficits Noted Gross Range of Motion Upper Extremity ROM Assessment Within Functional Limits Lower Extremity ROM Assessment Within Functional Limits Strength Upper Extremity Strength Assessment Within Functional Limits Lower Extremity Strength Assessment Bilaterally Impaired Hip 3+/5 Knee 4+/5 Ankle 4+/5 Comments Strength Comments Limited exam due to pt guarding with hip assessment. Coordination Assessment Gross Coordination Gross Coordination WNL Sensation Assessment Sensation Gross Sensation Right LE Impaired Light Touch Impaired Sensation Description Numbness Comments Sensation Comments Pt has history of L LE impairment of light touch sensation with distal more affected than proximal. Pt currently reporting burning in right lower back and dull light touch sensation in right lateral hip and anterior thigh. Muscle Tone Muscle Tone WNL Yes M6 PT-IP Treatment Start: 02/16/20 08:25 Freq: NEEDED Status: Active Protocol: Document 02/16/20 13:54 AW (Rec: 02/16/20 14:07 AW [id number]) Physical Therapy Treatment Education Education Provided Precautions,Safety Other Treatments Other Treatment Performed Reviewed spinal precautions with pt able to recall 3/3. M7 PT-IP Assessment and Plan Start: 02/16/20 08:25 Freq: NEEDED Status: Active Protocol: Document 02/16/20 13:54 AW (Rec: 02/16/20 14:07 AW [id number]) PT Summary Assessment and Plan Potential Rehabilitation Potential Good Status of Condition at Evaluation Stable Summary Impairments Pain,ROM,Strength,Balance, Sensation,Bed Mobility, Transfers,Gait,Activity Tolerance Progress Towards Goals Progressing Toward Goals Assessment Summary Ninoska was able to tolerate increased activity at this session with decreased degree of assist. She is progressing toward goals. She stated she felt more confident after walking the unit. She agreed for her to participate in caregiver training Saturday to include stair navigation. Goals Bed Mobility Goal Standby Assistance Transfer Goal Standby Assistance,Four Wheeled Walker Gait Goal Standby Assistance,Four Wheel Walker Gait Distance 200 Other Goals - up/down 3 steps with R rail ascending Days to Meet Goals 3 Frequency of Treatment Frequency Of Treatment Twice a Day Treatment Plan Physical Therapy Treatment Plan Bed Mobility Training,Transfer Training,Gait Training, Therapeutic Exercise,Balance Retraining,Post Op Education, Discharge Planning,Hot or Cold Pack,Neuromuscular Re-ed Other Recommendations and Next Treatment assess gait with 4WW, stairs, Focus caregiver training between 1000 and 1200 Recommendations To Nursing Amount of Assist Needed Standby Assistance Discharge Recommendations PT Discharge Recommendations Home with Assistance Equipment Needed for Home Before FWW if unsafe with 4WW; shower Discharge chair Transportation Needs at Discharge Private Vehicle
[2020-02-16 15:44] VITALS: BP 113/57; PULSE 71; RESP 18; TEMP 36.3; O2SAT 96
[2020-02-16] MEDS: HYDROMORPHONE 2 MG TABLET PO (17:23)
[2020-02-16 20:00] VITALS: BP 140/73; PULSE 72; RESP 18; TEMP 36.5; O2SAT 95
[2020-02-16] MEDS: SENNOSIDES 8.6 MG TABLET 17.2 MG PO (21:28)
[2020-02-16 23:47] VITALS: BP 134/53; PULSE 74; RESP 18; TEMP 37.7; O2SAT 91
[2020-02-17] MEDS: HYDROMORPHONE 2 MG TABLET PO ×2 (01:10→08:23)
[2020-02-17] MEDS: LEVOTHYROXINE 50 MCG TABLET PO (05:40)
[2020-02-17] MEDS: OXYCODONE IR 5 MG TABLET 10 MG PO ×3 (05:49→12:35)
[2020-02-17 05:55] VITALS: BP 120/57; PULSE 71; RESP 18; TEMP 36.7; O2SAT 94
[2020-02-17] MEDS: ACETAMINOPHEN 325 MG TABLET 650 MG PO ×2 (06:44→12:35)
[2020-02-17 08:16] VITALS: BP 128/72; PULSE 69; RESP 15; TEMP 37.2; O2SAT 96
[2020-02-17] MEDS: DOCUSATE 100 MG CAPSULE PO (08:22)
[2020-02-17] MEDS: SODIUM CHLORIDE 0.9% FLUSH 10 ML IV (08:25)
--- NOTE | 2020-02-17 09:29 | PC.NURSE ---
Addendum entered by Emily Holder R.N. 02/17/20 14:25: Urinary catheter removed at 1105 without difficulty. Pt voided around 1400 for approx 450mls of urine. Lower back dressing perforated edges are exposing inner dressing. Dressing removed. Incision area cleansed with NS, pat dry with gauze. Bilateral incisions well approximated with yeimy intact, no S/S of infection, no active bleeding. Medicated gauze left to right incision. Left side came off with outer dressing removal. Steri-strip to right side of dressing CDI. Coversite dressing X1 placed over incision and an extra given to pt. Pt tolerated dressing change well. Pt's Chris will be driving pt home and aware need to gave prescriptions filled after discharge. Original Note: Day Shift- At 0810, pt stated she did not want urinary catheter removed at this time, wants to wait until PT session. Pt states may or may not go home today due to mobility and pain management. Will continue to monitor.
--- NOTE | 2020-02-17 09:34 | CM.DPC ---
DCP Discharge Home Per Ortho MD, pt medically stable to d/c home today after further PT and no identified barriers to discharge. Per PT, recommending home with walker and spouse. Will complete CG training and stairs today with spouse at 1000 today and r/o 4WW vs FWW for discharge. Pt had gaviria out this AM and on po meds. Plan: Patient to d/c home via spouse today after CG training at 1000. No SW needs at this time. Jasmyn Holbrook, SCREW MACHINE HAND
--- NOTE | 2020-02-17 09:48 | P.DS_ITS ---
History of Present Illness History of Present Illness Date Patient Seen: 02/17/20 Time Patient Seen: 07:36 Chief complaint: Tranlaminar Interbody Fusion/Laminotomy Narrative: Patient has been having chronic back pain and worsening lumbar radiculopathy. Patient failed multiple conservative management with worsening pain weakness and numbness in her lower extremity. Patient has been having difficulty performing activity of daily living. After discussing risks benefits of treatment options, patient elected proceed with surgery. Discharge Providers Provider Date of admission: 02/15/20 06:12 Discharge Date: 02/17/20 Primary care physician: DEBORAH Catalan Consults: 02/15/20 14:42 Consult to Occupational Therapy Evaluate & Treat Comment: Physician Instructions: Evaluate and treat Consult to Physical Therapy Evaluate & Treat Comment: Physician Instructions: Evaluate and Treat Discharge provider: Garret Long PA-C Summary Hospital Course Discharge Diagnosis: 1. Lumbar scoliosis 2. Lumbar spondylolisthesis L1-2, L2-3, L3-4 3. Lumbar spinal stenosis with radiculopathy Hospital Course: Procedure & Clinicians Procedure: 1. L1-2, L2-3, L3-4 Postero-lateral and posterior interbody fusion 2. L1-2, L2-3, L3-4 interbody cage placement. 3. L1-2, L2-3, L3-4 decompressive laminectomy with bilateral facetecomies 4. L1-2, L2-3, L3-4 Posterior segmental instrumentation 5. [place] of bone marrow from iliac crest 6. Utilization of microsurgical technique and operating microscope Same procedure as scheduled: Yes Indications: Patient has been having chronic back pain and worsening lumbar radiculopathy. Patient failed multiple conservative management with worsening pain weakness and numbness in her lower extremity. Patient has been having difficulty performing activity of daily living. After discussing risks benefits of treatment options, patient elected proceed with surgery. Surgeon: Calista Perez Acid Purification Equipment Operator: Bing Delaney'Brien Click Yes if Unassisted: No Anesthesia Type: General Operative Notes Closure Type: primary Specimen(s): none sent Prosthetic devices, grafts, tissues, transplants, or devices: Globus revolve screws, Rise cages Applied: catheter Estimated Blood Loss (mL): 200 Blood products transfused: none Patient admitted to the hospital for the above-mentioned procedures. Patient consented to the same. Patient taken to the operating room underwent lumbar fusion and is back in her room recovering well as in stable condition. Exam Vital Signs (past 8 hours): - 02/17/20 05:55 02/17/20 08:16 Temperature 98.0 F 98.9 F Pulse Rate 71 69 Respiratory Rate 18 15 Blood Pressure 120/57 L 128/72 Pulse Oximetry 94 96 Oxygen Delivery Method Room Air Oxygen Flow Rate 0 Narrative Exam Narrative: Pleasant 64-year-old female resting comfortably in bed in no apparent distress. Sensation grossly intact to light touch bilateral lower extremities. Motor functions intact bilateral lower extremities. Scant drain age left edge of dressing. Dressing is otherwise intact. Objective Labs Result Diagrams: 02/16/20 06:00 Discharge Assessment & Plan Assessment and Plan Assessment: Patient progressing as expected status post lumbar fusion. Discharge home today. He she will continue oxycodone with the use of Dilaudid for breakthrough pain. Limit bending, twisting, lifting. Discharge Plan Discharge Plan Patient Disposition: Home Discharge orders & Medications Prescriptions: New acetaminophen 325 mg Tablet 650 mg PO Q6HR PRN (Reason: Pain, Mild (1-3)) Qty: 60 RF: 0 hydromorphone 2 mg Tablet 2 mg PO Q6HR PRN (Reason: Pain, Severe (7-10)) Qty: 20 RF: 0 docusate sodium [DOK] 100 mg Capsule 100 mg PO BID Qty: 20 RF: 0 oxycodone 5 mg Tablet 10 mg PO Q3HR PRN (Reason: Pain, Severe (7-10)) Qty: 45 RF: 0 Continued etodolac 400 mg Tablet 400 mg PO DAILY RF: 0 levothyroxine 50 mcg Capsule 50 mcg PO DAILY RF: 0 Allerclear 1 tab PO DIRECTED RF: 0 Vitamin B-12 1 tab PO DIRECTED RF: 0 Vitamin D 1 tab PO DIRECTED RF: 0 Follow up/Referrals: Calista Perez MD [Physician] - (2 wks) Laila Nolan ARNP [Primary Care Provider] - Discharge Health Status Multidrug resistant organism: No MDRO Diet/Activity/Treatments Diet: Diet as Tolerated Activity: Limit bending, twisting, lifting Cold/Heat Therapy: ice to low back as needed Skin/Wound/Dressing Care Report to your healthcare provider any signs of infection, such as:: chills, fe janet, increased pain, unusual drainage and unusual redness Dressing: keep clean and dry Visit Report/Discharge Packet Instructions: DI for Prescription Opioid Use, DI for Transforaminal Lumbar Interbody Fusion Stand Alone Forms: Surgery Discharge Discharge Data Primary Care Provider: Laila Nolan VTE Deep Vein Thrombosis/Pulmonary Embolism Present on Admission: No
--- NOTE | 2020-02-17 09:56 | OT.IP.EVAL ---
Current Diagnoses Other forms of scoliosis, lumbar region (02/15/20) Spondylolisthesis, lumbar region (02/15/20) Spinal stenosis, lumbar region without neurogenic claudication (02/15/20) Surgery Performed Operation Date: 02/15/20 07:45 Actual Procedures p L1-2, L2-3, L3-4 TLIF w. posterior instrumentation - Calista Perez MD Past Medical History (Last Updated 02/08/20 @ 10:19 by Lara Mohan RN) Arthritis (Acute) Depression (Acute) Easy bruisability (Acute) Heart murmur (Acute) Hypothyroid (Acute) Neck pain (Acute) Sciatica (Acute) Seasonal allergies (Acute) TMJ (dislocation of temporomandibular joint) (Acute) Ventricular ectopy (Acute) Surgical History (Last Updated 02/08/20 @ 10:19 by Lara Mohan RN) History of repair of left rotator cuff (Acute ~1988) S/P carpal tunnel release (Resolved) Status post left foot surgery (Resolved) Status post right foot surgery (Acute) Occupational Therapy Inpatient Evaluation/Re-Eval M1 PT/OT-IP Prior Functional Status Start: 02/16/20 08:25 Freq: NEEDED Status: Active Protocol: Document 02/16/20 09:06 AW (Rec: 02/16/20 09:18 AW [id number]) Medical Review Prior Functional Status Medical History Reviewed Yes Communication Pt is an effective verbal communicator Mobility and Gait Pt is IND with all mobility at baseline. She could walk up to 15 minutes but pain limited further activity. Activities of Daily Living and IADL's IND with dressing, toileting, showering tasks. Pt participates in cleaning, cooking, and shopping for home . 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 Prior Functional Level (Other details) Pt reports one fall in the last year. [place] and lost her balance. She was bruised but had no other injuries. Social History Household Members spouse Living Arrangements House Number of Floors (Floors) Two Floors Number of Stairs To Enter/Railing? Pt has a daylight basement but enters on the main living level and has no need to access the basement. There are 3 MIA through the garage with right rail ascending. Pt has no grab bars around the toilet, but there is a windowsill on the right side that she can use to boost herself. 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 Her , Carlos , also works for the [employer]. He will not be returning to school until March at the earliest. He will be available and able to assist as needed. M2 OT-IP Current Condition Start: 02/16/20 11:08 Freq: Status: Active Protocol: Document 02/17/20 09:10 [facility] (Rec: 02/17/20 12:56 [facility] [id number]) Occupational Therapy Current Condition Current Condition Evaluation Date 02/17/20 Treatment Diagnosis scoliosis/spinal stenosis s/p L1-2, l2-3, l3-4 TLIF Diagnosis Onset Date 02/15/20 Post Operative Precautions Lumbar Precautions Log Roll,No Twisting,Limit Bending,Lifting Restriction of 10 lbs,Gait Belt above Incisional Area M3 OT- IP Subjective and Pain Start: 02/16/20 11:08 Freq: Status: Active Protocol: Document 02/17/20 09:10 [facility] (Rec: 02/17/20 12:56 [facility] [id number]) OT- Subjective Occupational Therapy Visit Type Type Initial Evaluation Visit Start Time 09:10 Visit Stop Time 09:56 Total Visit Minutes 29 Notes Pt split treatment as able to speak to her when he arrived. [phone] and [phone]. Occupational Therapy Visit Comments Patient Comments Pt agreed to get up for OT eval. Patient/Caregiver Goals To go home. OT Pain Assessment Pain When Pain Assessed During Mobility Pain Present Pain Present Pain Reported Location Bilateral Anterior Head Intensity 7 Scale Used Numeric (0 - 10) M4 OT- IP ADL's Start: 02/16/20 11:08 Freq: Status: Active Protocol: Document 02/17/20 09:10 [facility] (Rec: 02/17/20 12:56 [facility] [id number]) OT [id number] Comments OT Self-Feeding Comments Not at meal time. OT ADL-Grooming General Evaluation Grooming Ability Standby Assistance Comments OT Grooming Comments VC to lean at hips to spit or spit into a cup to best follow back precautions. OT ADL-Oral Care General Eval Oral Care Ability Independent OT ADL-Dressing General Eval Lower Body Dressing Ability Maximum Assistance Comments OT Dressing Comments Educated pt on use of marketing analytics analyst to doff socks and use of sock aid to jayson socks and best follow back precautions. Pt issued sock aid. OT ADL-Toileting General Evaluation Toileting Ability Standby Assistance Comments OT Toileting Comments Able to simulate wiping and pt able to lean to the side to wipe appropriately and good safety for back precautions. Suggested to wear pads at night and call for to assist initially. OT ADL-Bathing Comments OT Bathing Comments Pt not wanting to shower at this time. Pt's able to get a shower chair and will be able to assist pt for needs. M5 OT- IP IADL's Start: 02/16/20 11:08 Freq: Status: Active Protocol: Document 02/17/20 09:10 [facility] (Rec: 02/17/20 12:56 [facility] [id number]) OT-Instrumental Activities of Daily Living Home Safety Awareness Awareness of Need for Assistance at Home Good Awareness Ability to Problem Solve Emergency Able to Problem Solve Situations Medication Management Medication Management No Deficits Identified Money Management Money Management No Deficits Identified Meal Preparation Meal Preparation Caregiver Provides Assist Motorcycle Assembler Motorcycle Assembler Caregiver Provides Assist M6 OT- IP Functional Cognition Start: 02/16/20 11:08 Freq: Status: Active Protocol: Document 02/17/20 09:10 [facility] (Rec: 02/17/20 12:56 [facility] [id number]) Cognitive Factors Limiting Selfcare Function Cognitive Ability Level of Alertness Alert Patient Orientation Name,Place,Situation Attention Span Ability Capable of Focused Attention, Capable of Sustained Attention Ability to Follow Commands Able to Follow Multi-Step Commands Memory Description No Deficits Noted Safety Awareness No Deficits Noted Problem Solving Ability No deficits Noted Cognitive Comments Cognitive Assessment Comments No cognitive deficits noted and pt good awareness of back precautions and able to incorporate for needs. OT- Vision and Hearing OT- Hearing Assessment OT- Hearing Assessment WFL M7 OT- IP Mobility and Balance Start: 02/16/20 11:08 Freq: Status: Active Protocol: Document 02/17/20 09:10 [facility] (Rec: 02/17/20 12:56 [facility] [id number]) OT- Bed Mobility Assessment Rolling Type of Rolling Roll to Left Supine to Sit Supine to Sit Assist Standby Assistance Sit to Supine Sit to Supine Assist Standby Assistance OT-Transfer Assessment Sit to and From Stand Sit to and from Stand Standby Assistance Transfers Transfer Ability Standby Assistance Technique Transfer Destination Bed,Toilet Transfer Technique Stand Step Pivot Devices Transfer Assistive Devices Gait Belt,4 Wheeled Walker Comments Mobility Comments Pt able to use 4WW with good safety to get to the sink and bathroom. OT- Balance Assessment Sitting Balance and Reactions Static Sitting Balance Ability Normal Dynamic Sitting Balance Ability Good Standing Balance and Reactions Static Standing Balance Ability Good M8 OT- IP Objective Assessments Start: 02/16/20 11:08 Freq: Status: Active Protocol: Document 02/17/20 09:10 [facility] (Rec: 02/17/20 12:56 [facility] [id number]) OT Gross Range of Motion Upper Extremity Range of Motion Assessment Within Functional Limits OT Strength Upper Extremity Strength Assessment Within Functional Limits OT-Muscle Tone Assessment Muscle Tone WNL Yes M9 OT- IP Assessment and Plan Start: 02/16/20 11:08 Freq: Status: Active Protocol: Document 02/17/20 09:10 [facility] (Rec: 02/17/20 12:56 [facility] [id number]) OT Summary Assessment and Plan Potential Rehabilitation Potential Excellent Analytic Complexity at Evaluation Low Summary OT Impairments Pain,Bathing,Shower Transfers Progress Towards Goals Progressing Toward Goals Assessment Summary Pt low complexity and main barriers are pain and steps at home. Pt doing well and both and pt have good understanding for all OT needs . Pt has a supportive that will assist her as needed . Pt looking to go home today. Sock aid issued to pt. Goals Shower Transfer Goal Standby Assistance Patient/Caregiver Education Goal Demonstrate Post-Op Precautions,Caregiver Independent Assisting Patient Days to Meet Goals 1 Frequency of Treatment Frequency Of Treatment Once a Day Treatment Plan OT Treatment Plan ADL Training,Functional Mobility,Patient/Family Education,Discharge Planning Other Treatment Recommendations and Next Shower if still here. Treatment Focus Discharge Recommendations OT Discharge Recommendations Home with Assistance Home Equipment Needs Shower chair- has obtained. Transportation Needs at Discharge Private Vehicle
--- NOTE | 2020-02-17 10:48 | PT.IPTN ---
Current Diagnoses Other forms of scoliosis, lumbar region (02/15/20) Spondylolisthesis, lumbar region (02/15/20) Spinal stenosis, lumbar region without neurogenic claudication (02/15/20) Surgery Performed Operation Date: 02/15/20 07:45 Actual Procedures p L1-2, L2-3, L3-4 TLIF w. posterior instrumentation - Calista Perez MD Physical Therapy Treatment Note M2 PT-IP Current Condition Start: 02/16/20 08:25 Freq: NEEDED Status: Active Protocol: Document 02/17/20 10:04 TP (Rec: 02/17/20 11:46 TP [id number]) Physical Therapy Current Condition Precautions Lumbar Precautions Log Roll,No Twisting,Limit Bending,Lifting Restriction of 10 lbs,Gait Belt above Incisional Area M3 PT-IP Subjective Start: 02/16/20 08:25 Freq: NEEDED Status: Active Protocol: Document 02/17/20 10:04 TP (Rec: 02/17/20 11:46 TP [id number]) Subjective Physical Therapy Visit Type Type Treatment Note Visit Start Time 10:04 Visit Stop Time 10:48 Total Visit Minutes 44 Notes Pt's spouse present for caregiver training. Student SIMONE Cortez supervised by SIMONE Guerra. Number of FIRE HYDRANT MECHANIC Visits 1 Physical Therapy Visit Comments Patient Comments Pt is willing to participate with PT Patient Goals Pt hopes to return home at d/c with spouse assist Therapy Pain Assessment Pain When Pain Assessed At Rest Pain Present Pain Present Pain Reported Location back Intensity 5 Scale Used 5-6/10 at rest; 8/10 post-tx Pain Management Techniques Re-positioning,Timing of Activity with Medications M4 PT-IP Mobility and Gait Start: 02/16/20 08:25 Freq: NEEDED Status: Active Protocol: Document 02/17/20 10:04 TP (Rec: 02/17/20 11:46 TP [id number]) PT-Bed Mobility Assessment Rolling Type of Rolling Log Rolling,Roll to Left Level of Assist Standby Assistance Supine to Sit Supine to Sit Standby Assistance Sit to Supine Sit to Supine Standby Assistance Scooting Scooting to Edge of Bed Standby Assistance Scooting Up and Down in Bed Standby Assistance PT-Transfer Assessment Sit to and From Stand Sit to and from Stand Standby Assistance,Use of Upper Extremities Equipment Transfer Assistive Device Gait Belt,4 Wheeled Walker Orthotic/Prosthetic Devices or Brace: No Transfers Transfer Destination Bed Transfer Technique pt ambulated with 4WW Transfer Ability Level of Assist Standby Assistance,Use of Upper Extremities Comments Mobility Comments Pt reclined in bed in supine position with knees suppported by pillow. Pt spouse present for tx. Pt recall 3/3 back precautions. Pt lowered bed to flat position. Cues for transverse abdominis facilitation prior to initiating activity. Left log roll SBA, maintaining good alignment with knees and shoulders moving together. Supine<>sit SBA pushing up through the R UE with cues for allowing the legs to come to the floor simultaneously. Gait belt donned via spouse, with education on proper tightness for safe use. Sit<>stand SBA 4WW with safe use of breaks, using EOB to push off of with one hand (no cues needed). Pt ambulated to stairs then around nurse's station approximately 212' without rest, 4WW SBA with cues for heel-toe walking R>L. Pt ascend/descend 3 stairs with R rail using step-to pattern, CGA provided by spouse. In room, pt noted increase of pain from 5/10 to 8/10 with movement. Stand to sit at L EOB SBA, 4WW reaching back with one hand before sitting ( no cues needed). Sit-to- supine SBA maintaining good alignment of shoulders and knees to maintain precautions. Pt education for performance of ankle pumps and heel slides. Pt demonstrated and reported good understanding. Pt able to scoot up the bed and roll slightly to place ice pack along spine, SBA. Ice pack applied to lumbar spine to manage pain. Bilateral SCDs donned and turned on. Pt noted trouble with vision but denied dizziness. Described seeing an object, blinking, and the object moved slightly. Call light in reach and all other needs within reach. Bed alarm activated for safety. Reported pt progress to nurse and the vision impairtment reported at the end of tx. Gait Assessment Gait Gait Assistance Required: Standby Assistance Distance (Feet) 212 Able to Maintain Weight Bearing Status Yes During Gait Assistive Devices Assistive Device Gait Belt,4 Wheeled Walker Gait Deviations General Gait Pattern Antalgic,Decreased Stride Length,Decreased Feet Clearance,Flexed Trunk Factors Limiting Gait Function Factors Limiting Gait Function Decreased Activity Tolerance, Decreased Sensation,Decreased Strength,Limited Range of Motion,Pain,Poor Balance Comments Gait Comments Gait goal met. Ambulation with 4WW 212' SBA. Minimal cues given for shoulder depression and heel-toe gait. Stair Climbing Assessment Evaluation Level of Assist On Stairs Contact Guard Assistance,1 Person Assistance Devices Stair Climbing Assistive Devices Right Railing Technique/Endurance Stair Climbing Direction Ascend and Descend Stair Climbing Technique Step to Step Number of Steps Climbed 3 Stair Climbing Set # Repetitions (reps) 1 Comments Stair Climbing Comments Stair goal met. Pt ascended/ descended 3 stairs CGA with R rail ascending. Used step to pattern, with strength and confidence improving with duration. PT-Balance Assessment Sitting Balance and Reactions Static Sitting Balance Ability Normal Dynamic Sitting Balance Ability Good Standing Balance and Reactions Static Standing Balance Ability Good Dynamic Standing Balance Ability Good Device Used 4WW M5 PT-IP Objective Assessments Start: 02/16/20 08:25 Freq: NEEDED Status: Active Protocol: Document 02/16/20 10:48 AW (Rec: 02/16/20 11:10 AW [id number]) Orientation Orientation/Cognition Level of Alertness Alert Orientation Name,Day of Week,Place, Situation Language Function Ability No Deficits Noted Safety Awareness Understands Safety Issues Memory Description No Deficits Noted Gross Range of Motion Upper Extremity ROM Assessment Within Functional Limits Lower Extremity ROM Assessment Within Functional Limits Strength Upper Extremity Strength Assessment Within Functional Limits Lower Extremity Strength Assessment Bilaterally Impaired Hip 3+/5 Knee 4+/5 Ankle 4+/5 Comments Strength Comments Limited exam due to pt guarding with hip assessment. Coordination Assessment Gross Coordination Gross Coordination WNL Sensation Assessment Sensation Gross Sensation Right LE Impaired Light Touch Impaired Sensation Description Numbness Comments Sensation Comments Pt has history of L LE impairment of light touch sensation with distal more affected than proximal. Pt currently reporting burning in right lower back and dull light touch sensation in right lateral hip and anterior thigh. Muscle Tone Muscle Tone WNL Yes M6 PT-IP Treatment Start: 02/16/20 08:25 Freq: NEEDED Status: Active Protocol: Document 02/17/20 10:04 TP (Rec: 02/17/20 11:46 TP [id number]) Physical Therapy Treatment Exercises Exercises Ankle Pumps,Heel Slides,Seated Knee Flexion/Extension Education Education Provided Precautions,Safety Other Treatments Other Treatment Performed Reviewed spinal precautions with pt able to recall 3/3. Caregiver training provided for spouse, including gait belt donning, providing SBA and CGA safely, and stair management. Pt education and demonstration of transverse abdominis facilitation prior to initiating activity for spinal stabilization, especially during movement at night when pain increases. Education for use of pillows for support sleeping in a sidelying position. M7 PT-IP Assessment and Plan Start: 02/16/20 08:25 Freq: NEEDED Status: Active Protocol: Document 02/17/20 10:04 TP (Rec: 02/17/20 11:46 TP [id number]) PT Summary Assessment and Plan Potential Rehabilitation Potential Good Status of Condition at Evaluation Stable Summary Impairments Pain,ROM,Strength,Balance, Sensation,Bed Mobility, Transfers,Gait,Activity Tolerance Progress Towards Goals Goals Met Assessment Summary Pt tolerated increased activity today, ambulating 212 ' with 4WW SBA and ascending/ descending 3 stairs with R rail, CGA. All PT goals have been met and she is recommended for discharge home with to assist when medically appropriate. Goals Bed Mobility Goal Standby Assistance Transfer Goal Standby Assistance,Four Wheeled Walker Gait Goal Standby Assistance,Four Wheel Walker Gait Distance 200 Other Goals - up/down 3 steps with R rail ascending Days to Meet Goals 3 Frequency of Treatment Frequency Of Treatment Twice a Day Treatment Plan Physical Therapy Treatment Plan Bed Mobility Training,Transfer Training,Gait Training, Therapeutic Exercise,Balance Retraining,Post Op Education, Discharge Planning,Hot or Cold Pack,Neuromuscular Re-ed Other Recommendations and Next Treatment Pt is ready for discharge home Focus with assist. Recommendations To Nursing Amount of Assist Needed Standby Assistance Discharge Recommendations PT Discharge Recommendations Home with Assistance Equipment Needed for Home Before shower chair Discharge Transportation Needs at Discharge Private Vehicle
[2020-02-17 13:40] VITALS: BP 140/68; PULSE 74; RESP 15; TEMP 37; O2SAT 97
== END 2020-02-17 17:01 | disposition home or self-care (01) | DRG 455 ==
PROVIDERS: Physician Assistant Surgical; Admitting Provider Orthopaedic Surgery Orthopaedic Surgery of the Spine; Family Provider Nurse Practitioner Family; PCP Internal Medicine; Referring Provider Orthopaedic Surgery Orthopaedic Surgery of the Spine; Visit Provider Orthopaedic Surgery Orthopaedic Surgery of the Spine
PROC: 0SG10AJ Fusion of 2 or more Lumbar Vertebral Joints with Interbody Fusion Device, Posterior Approach, Anterior Column, Open Approach (ICD-10-PCS; principal; 2020-02-15 07:45)
DX: M41.56 Other secondary scoliosis, lumbar region (principal); M48.061 Spinal stenosis, lumbar region without neurogenic claudication; M43.16 Spondylolisthesis, lumbar region; E03.9 Hypothyroidism, unspecified
CPT/HCPCS: 36415; 72100; 76000; 81001; 85014; 85018; 97116; 97161; 97165; 97530; 97535; C1776; C9290; J0131; J0330; J0690; J1100; J1170; J2405; J2704; J3010

== ENCOUNTER → 2021-10-19 14:45 | Outpatient (CLI) | payer OTHER, SELFPAY ==
[2020-02-15 14:51] VITALS: BMI 22.4
--- NOTE | 2021-10-19 | DI.MG.S_ITS ---
BILATERAL DIGITAL SCREENING MAMMOGRAM 3D/2D WITH CAD: 10/19/2021 CLINICAL: Routine screening. Family history of breast cancer. Comparison is made to exams dated: 05/06/2017 mammogram, 05/07/2016 mammogram, and 05/26/2015 mammogram - [facility]. The tissue of both breasts is heterogeneously dense. This may lower the sensitivity of mammography. Current study was also evaluated with a Computer Aided Detection (CAD) system. No significant masses, calcifications, or other findings are seen in either breast. There has been no significant interval change. IMPRESSION: NEGATIVE There is no mammographic evidence of malignancy. A 1 year screening mammogram is recommended. This exam was interpreted at Station ID: [id number]. NOTE: For mammograms, a report in lay terms will be sent to the patient. Approximately 15% of breast malignancies will not be visualized mammographically. In the management of a palpable breast mass, a negative mammogram must not discourage biopsy of a clinically suspicious lesion. Electronically Signed By: Natan greenfield/grant:10/19/2021 16:11:46 letter sent: Normal Exam ACR BI-RADS Category 1: Negative [id number]
== END ==
PROVIDERS: Family Provider Nurse Practitioner Family; PCP Internal Medicine; Referring Provider Internal Medicine; Visit Provider Internal Medicine
DX: Z12.31 Encounter for screening mammogram for malignant neoplasm of breast (principal); Z13.820 Encounter for screening for osteoporosis; Z80.3 Family history of malignant neoplasm of breast; Z78.0 Asymptomatic menopausal state
CPT/HCPCS: 77063; 77067; 77080; 77081

== ENCOUNTER → 2022-09-06 11:31 | Outpatient (CLI) | payer OTHER, SELFPAY ==
[2020-02-15 14:51] VITALS: BMI 22.4
--- NOTE | 2022-09-06 | DI.RAD.S_ITS ---
PROCEDURE: XR SHOULDER RT MIN 2V INDICATIONS: right shoulder pain TECHNIQUE: 3 views of the shoulder were acquired. COMPARISON: None. FINDINGS: Bones: No fractures or dislocations. No suspicious bony lesions. Mild degenerative joint disease in acromioclavicular and glenohumeral joint. Visualized ribs appear intact. Soft tissues: No suspicious soft tissue calcifications. IMPRESSION: Mild degenerative joint disease. Dictated by: Miguel Westbrook M.D. on 09/06/2022 at 14:42 Approved by: Miguel Westbrook M.D. on 09/06/2022 at 14:44
== END ==
PROVIDERS: Family Provider Nurse Practitioner Family; PCP Internal Medicine; Referring Provider Internal Medicine; Visit Provider Internal Medicine
DX: M25.511 Pain in right shoulder (principal); M19.012 Primary osteoarthritis, left shoulder
CPT/HCPCS: 73030

== ENCOUNTER → 2022-11-16 16:52 | Outpatient (CLI) | payer OTHER, SELFPAY ==
[2020-02-15 14:51] VITALS: BMI 22.4
--- NOTE | 2022-11-16 16:53 | DI.MRI.S_ITS ---
PROCEDURE: MR SHOULDER RT WO CON INDICATIONS: RIGHT SHOULDER PAIN TECHNIQUE: Noncontrast oblique coronal T2 fast spin echo with fat saturation, oblique sagittal T1 spin echo and T2 fast spin echo with fat saturation, axial T1 spin echo and T2 fast spin echo with fat saturation through the shoulder. COMPARISON: None. FINDINGS: Image quality: Excellent. Rotator cuff: Low to moderate grade articular and bursal surface partial thickness tear involving distal supraspinatus at its insertion on the humeral head is seen extending to musculotendinous junction. Distal infraspinatus tendinosis and low-grade articular surface partial-thickness tear is seen. Low-grade partial-thickness tear involving superior fibers of distal subscapularis is also noted. No full-thickness rotator cuff tendon rupture. Sagittal images demonstrate no significant rotator cuff muscle atrophy. Bones and bursae: No bone marrow contusions or fractures. Moderate acromioclavicular joint osteoarthritic changes are seen with joint space narrowing, subchondral sclerosis and downward osteophyte formation depressing the musculotendinous junction of supraspinatus. Mild to moderate glenohumeral joint osteoarthritic changes are also seen. Small to moderate subacromial subdeltoid bursal fluid is noted. Capsule and soft tissues: Subtle signal abnormality and contour irregularity involving anterior inferior labrum at 5 to 6 o'clock position which may indicate subtle anterior inferior labral tear. The long head of the biceps tendon appears thickened with intrasubstance T2 hyperintense signal. The rotator interval appears normal, without fibrosis. The coracohumeral ligament is normal in thickness. IMPRESSION: 1. Low to moderate grade articular and bursal surface partial thickness tear involving distal supraspinatus extending to musculotendinous junction. Low-grade articular surface partial-thickness tear involving distal infraspinatus. Low-grade intrasubstance partial-thickness tear involving superior to mid fibers of distal subscapularis. No full-thickness rotator cuff tendon rupture. No significant muscle atrophy. 2. Moderate acromioclavicular joint osteoarthritis and [id number] glenohumeral joint osteoarthritis. No fracture or dislocation. Small to moderate amount of subacromial subdeltoid bursal fluid. 3. Finding is concerning for anterior-inferior labral tear at 5 to 6 o'clock position. 4. Proximal long head of biceps tendinosis and low-grade intrasubstance partial-thickness tear. Dictated by: Mychal Srivastava M.D. on 11/19/2022 at 8:20 Approved by: Mychal Srivastava M.D. on 11/19/2022 at 8:34
== END ==
PROVIDERS: Family Provider Nurse Practitioner Family; PCP Internal Medicine; Referring Provider Orthopaedic Surgery; Visit Provider Orthopaedic Surgery
DX: M75.111 Incomplete rotator cuff tear or rupture of right shoulder, not specified as traumatic (principal); S46.111A Strain of muscle, fascia and tendon of long head of biceps, right arm, initial encounter; M19.011 Primary osteoarthritis, right shoulder; M25.511 Pain in right shoulder
CPT/HCPCS: 73221

== ENCOUNTER → 2022-11-26 15:52 | Outpatient (CLI) | payer OTHER, SELFPAY ==
[2020-02-15 14:51] VITALS: BMI 22.4
--- NOTE | 2022-11-26 | DI.MG.S_ITS ---
BILATERAL DIGITAL SCREENING MAMMOGRAM 3D/2D WITH CAD: 11/26/2022 CLINICAL: Routine screening. Family history of breast cancer. Comparison is made to exams dated: 10/19/2021 mammogram, 05/06/2017 mammogram, 05/07/2016 mammogram, and 05/26/2015 mammogram - [facility]. Both breasts are heterogeneously dense, which may obscure small masses (category c / 51-75% glandular tissue). Current study was also evaluated with a Computer Aided Detection (CAD) system. No significant masses, calcifications, or other findings are seen in either breast. There has been no significant interval change. IMPRESSION: NEGATIVE There is no mammographic evidence of malignancy. A 1 year screening mammogram is recommended. Based on the Tyrer Cuzick model (a risk assessment model) the patient's lifetime risk is 17.4% and her 10 year risk is 9.4%. According to the ACR, ACS, and NCCN guidelines, an annual breast MRI exam along with mammogram is recommended if the patient's lifetime risk is 20% or greater. This exam was interpreted at Station ID: [id number]. NOTE: For mammograms, a report in lay terms will be sent to the patient. Approximately 15% of breast malignancies will not be visualized mammographically. In the management of a palpable breast mass, a negative mammogram must not discourage biopsy of a clinically suspicious lesion. Electronically Signed By: Chencho bianchi/grant:11/27/2022 09:04:48 letter sent: Normal Exam ACR BI-RADS Category 1: Negative [id number]
== END ==
PROVIDERS: Family Provider Nurse Practitioner Family; PCP Internal Medicine; Referring Provider Internal Medicine; Visit Provider Internal Medicine
DX: Z12.31 Encounter for screening mammogram for malignant neoplasm of breast (principal); Z80.3 Family history of malignant neoplasm of breast
CPT/HCPCS: 77063; 77067

== ENCOUNTER → 2023-05-03 09:20 | Outpatient (CLI) | payer OTHER, SELFPAY ==
[2020-02-15 14:51] VITALS: BMI 22.4
--- NOTE | 2023-05-03 | DI.RAD.S_ITS ---
PROCEDURE: XR WRIST LT MIN 3V INDICATIONS: ground level fall on extended arm, pain, swelling TECHNIQUE: 4 views of the wrist were acquired. COMPARISON: None. FINDINGS: Bones: There is mild irregularity and bony step-off involving the distal radius anteriorly, seen on the lateral view only. No suspicious bony lesions. Joint space narrowing and periarticular osteophyte formation at the scaphoid trapezial and 1st carpometacarpal joint. There is a well corticated ossific structure at the radial aspect of the proximal 1st metacarpal. Scaphoid view: Negative Soft tissues: No suspicious soft tissue calcifications. IMPRESSION: 1. Minimally displaced distal radial fracture. 2. Chronic appearing osseous structure adjacent to the 1st metacarpal, possibly indicating a chronic trapezium fracture. 3. Osteoarthritis. Dictated by: Elin Johns M.D. on 05/03/2023 at 14:23 Approved by: Elin Johns M.D. on 05/03/2023 at 14:25
== END ==
PROVIDERS: Family Provider Nurse Practitioner Family; PCP Internal Medicine; Referring Provider Registered Nurse; Visit Provider Registered Nurse
DX: S52.502A Unspecified fracture of the lower end of left radius, initial encounter for closed fracture (principal); M19.032 Primary osteoarthritis, left wrist
CPT/HCPCS: 73110

== ENCOUNTER → 2023-05-10 19:01 | Outpatient (CLI) | payer OTHER, SELFPAY ==
[2020-02-15 14:51] VITALS: BMI 22.4
--- NOTE | 2023-05-10 | DI.MRI.S_ITS ---
PROCEDURE: MR WRIST LT WO CON INDICATIONS: fracture of navicular scaphoid bone left wrist TECHNIQUE: Noncontrast coronal proton density fast spin echo and T2 fast spin echo with fat saturation; coronal 3-D gradient echo, axial T1 spin echo and T2 fast spin echo with fat saturation, sagittal T1 spin echo through the wrist. COMPARISON: [facility], CR, XR WRIST LT MIN 3V, 05/03/2023, 9:56. FINDINGS: Image quality: Excellent. Bones and cartilage: Mildly impacted transverse fracture is again seen at the distal radius with mild surrounding osseous edema. There is suspected incomplete ulnar styloid fracture. Osseous edema is also noted within the capitate and hamate bones suspicious for osseous contusions. Navicular is intact. Severe degenerative changes are noted at the 1st carpometacarpal joint and the triscaphe joint with subchondral edema. No evidence for avascular necrosis. Mild soft tissue edema is seen surrounding the wrist. Carpal ligaments: The scapholunate and lunotriquetral ligaments appear intact. On sagittal images, the pisohamate ligament appears intact. Triangular fibrocartilage complex: Small full-thickness defect is seen within the triangular fibrocartilage disc near the radial attachment, which is of uncertain chronicity. Tendons and soft tissues: The carpal tunnel structures appear normal, including the median nerve. The ulnar nerve appears normal within Guyon's canal. Mild extensor carpi ulnaris tendinosis. There is mild tenosynovitis of the 2nd and 3rd extensor compartment tendons. The remaining extensor tendon compartments demonstrate normal morphology, without pathologic tendon sheath fluid. No soft tissue ganglion cysts. IMPRESSION: 1. Mildly impacted distal radius fracture is seen with mild osseous edema. Possible incomplete ulnar styloid fracture or osseous contusion. Scaphoid is intact. 2. Mild osseous edema within the dorsal aspect of the capitate and hamate is suspicious for mild contusions. 3. Severe 1st carpometacarpal in triscaphe osteoarthrosis with surrounding subchondral edema. Small calcification adjacent to the 1st carpometacarpal joint may be related to degenerative changes versus a remote prior injury. 4. Small full-thickness defect within the triangular fibrocartilage near the radial attachment, which is of uncertain chronicity. 5. Mild tenosynovitis of the extensor pollicis longus tendon and the extensor carpi radialis longus and brevis tendons, which may be reactive to the adjacent radial fracture. Mild extensor carpi ulnaris tendinosis. Approved by: Natan Puckett M.D. on 05/13/2023 at 10:46
== END ==
PROVIDERS: Family Provider Nurse Practitioner Family; PCP Internal Medicine; Referring Provider Physician Assistant Medical; Visit Provider Physician Assistant Medical
DX: S62.002A Unspecified fracture of navicular [scaphoid] bone of left wrist, initial encounter for closed fracture (principal); M25.432 Effusion, left wrist; M19.032 Primary osteoarthritis, left wrist
CPT/HCPCS: 73221

== ENCOUNTER → 2023-05-13 09:40 | Outpatient (CLI) | payer OTHER, SELFPAY ==
[2020-02-15 14:51] VITALS: BMI 22.4
--- NOTE | 2023-05-13 09:42 | DI.RAD.S_ITS ---
Bone Density Report Name: TWILA MOE Age: 67 Sex: Female Ethnicity: White Date of : 1955 Indication: postmenopausal; screening for osteoporosis; Referring Provider: LAUREN LIRA Study: Bone densitometry was performed. Exam Date: May 13, 2023 Accession number: [id number] Bone Density: Region BMD T-score Z-score Classification Femoral Neck (Left) 0.746 -0.9 0.7 Normal Total Hip (Left) 0.900 -0.3 1.0 Normal Femoral Neck (Right) 0.814 -0.3 1.4 Normal Total Hip (Right) 0.882 -0.5 0.9 Normal Total Hip Mean 0.891 -0.4 1.0 Normal Total Forearm (Right) 0.485 -1.7 0.1 Osteopenia 1/3 Forearm (Right) 0.627 -1.1 0.8 Osteopenia UD Forearm (Right) 0.333 -1.9 -0.5 Osteopenia World Health Organization criteria for BMD impression classify patients as: Normal (T-score at or above -1.0), Osteopenia (T-score between -1.0 and -2.5), or Osteoporosis (T-score at or below -2.5). 10-year Fracture Risk: FRAX not reported because: All T-scores for Spine Total, Hip Total, Femoral Neck at or above -1.0 Previous Exams: -- Region Exam Age BMD T-score BMD Change BMD Change Date g/cm2 vs Baseline vs Previous -- Total Hip(Left) 05/13/2023 67 0.900 -0.3 -0.027 (-2.9%)# 0.015 (1.7%) 10/19/2021 66 0.885 -0.5 -0.042 (-4.5%)# -0.042 (-4.5%)# 03/19/2014 58 0.927 -0.1 Total Hip(Right) 05/13/2023 67 0.882 -0.5 -0.069 (-7.3%)# 0.011 (1.2%) 10/19/2021 66 0.871 -0.6 -0.080 (-8.4%)# -0.080 (-8.4%)# 03/19/2014 58 0.951 0.1 -- *Denotes significance at 95% confidence level, LSC for Total Hip = 0.027 g/cm2 # Denotes dissimilar scan types or analysis methods Impression: The patient has normal bone mass. No significant bone loss was observed. Discussion: BONE DENSITY IS ABOVE THE MINIMUM DESIRABLE LEVEL AT ALL SKELETAL SITES TESTED. This patient's bone mineral density is above the minimum desirable level (T-score -1.0 or better) at all sites measured. The patient should follow a healthful lifestyle (good nutrition with adequate calcium and vitamin D, and appropriate weight-bearing exercise). Follow-Up: Consider repeating this study in 5 years or sooner if there is some new clinical indication. Reported by: ROBERT MORALES M.D. on 05/13/2023 10:08:00 AM.
== END ==
PROVIDERS: Family Provider Nurse Practitioner Family; PCP Internal Medicine; Referring Provider Registered Nurse; Visit Provider Registered Nurse
DX: M84.434A Pathological fracture, left radius, initial encounter for fracture; Z78.0 Asymptomatic menopausal state
CPT/HCPCS: 77080; 77081

== ENCOUNTER → 2023-10-29 11:21 | Outpatient (CLI) | payer OTHER, SELFPAY ==
[2020-02-15 14:51] VITALS: BMI 22.4
--- NOTE | 2023-10-29 | DI.RAD.S_ITS ---
PROCEDURE: XR KNEE LT 3V INDICATIONS: PAIN TECHNIQUE: 3 views of the knee were acquired. COMPARISON: None. FINDINGS: Bones: No fractures or dislocations. There is moderate femorotibial compartment narrowing and small tricompartmental osteophytes. There is severe patellofemoral joint space narrowing. Soft tissues: No joint effusion. No suspicious soft tissue calcifications. IMPRESSION: Moderate osteoarthritis of the left knee. Dictated by: Zahraa Huff M.D. on 10/29/2023 at 13:35 Approved by: Zahraa Huff M.D. on 10/29/2023 at 13:36
--- NOTE | 2023-10-29 | DI.RAD.S_ITS ---
PROCEDURE: XR FOOT LT MIN 3V INDICATIONS: PAIN TECHNIQUE: 3 views of the foot were acquired. COMPARISON: None. FINDINGS: Bones: Postoperative changes noted across the 1st TMT joint. No acute fracture or dislocation. No suspicious bony lesions. No hardware fracture. Severe degenerative changes are present at the midfoot. There is a small calcaneal spur. Soft tissues: No tibiotalar joint effusion. Achilles tendon appears normal. IMPRESSION: No acute bony abnormality. Dictated by: Zahraa Huff M.D. on 10/29/2023 at 13:33 Approved by: Zahraa Huff M.D. on 10/29/2023 at 13:34
--- NOTE | 2023-10-29 | DI.RAD.S_ITS ---
PROCEDURE: XR HIP W PEL IF DONE LT 2V INDICATIONS: PAIN TECHNIQUE: AP pelvis with lateral view(s) of the left hip(s). COMPARISON: None. FINDINGS: Bones: There is mild bilateral hip joint space narrowing and small bilateral collar osteophytes. No acute fracture or dislocation. No suspicious bony lesions. Soft tissues: The visualized bowel gas pattern is normal. There is a partially calcified left fibroid. IMPRESSION: Mild to moderate bilateral hip osteoarthritis. Dictated by: Zahraa Huff M.D. on 10/29/2023 at 13:34 Approved by: Zahraa Huff M.D. on 10/29/2023 at 13:35
== END ==
PROVIDERS: Family Provider Nurse Practitioner Family; PCP Internal Medicine; Referring Provider Internal Medicine; Visit Provider Internal Medicine
DX: M17.12 Unilateral primary osteoarthritis, left knee (principal); M16.0 Bilateral primary osteoarthritis of hip; M79.672 Pain in left foot; M77.32 Calcaneal spur, left foot; M25.562 Pain in left knee; R10.32 Left lower quadrant pain; G89.29 Other chronic pain
CPT/HCPCS: 73502; 73562; 73630

== ENCOUNTER → 2023-12-19 11:45 | Outpatient (CLI) | payer OTHER, SELFPAY ==
[2020-02-15 14:51] VITALS: BMI 22.4
[2023-12-19 12:42] LABS: Add Manual Diff / Slide Review NO; Basophils Absolute Auto 0 /uL (0-100); Basophils Percent Auto 0.7 % (0-2); Eosinophils Absolute Auto 100 /uL (0-450); Eosinophils Percent Auto 2.3 % (2-4); Hematocrit 37.8 % (36-46); Hemoglobin 12.6 g/dL (12.0-16.0); Lymphocytes Absolute Auto 1200 /uL (1100-4500); Lymphocytes Percent Auto 21.9 % (25-40); Mean Corpuscular HGB Conc 33.4 % (30-36); Mean Corpuscular Hemoglobin 30.2 PG (26-34); Mean Corpuscular Volume 90.4 fL (80-100); Monocytes Absolute Auto 400 /uL (0-900); Neutrophils Absolute Auto 3700 /uL (1500-7000); Neutrophils Percent Auto 67.1 % (50-75); Platelet Count 209 X10^3/uL (150-400); Red Blood Cell Count 4.18 X10^6/uL (4.0-5.2); Red Cell Distribution Width 13.8 % (11.6-14.8); White Blood Cell Count 5.5 X10^3/uL (4.5-11.0)
[2023-12-19 13:02] LABS: Albumin 4.6 g/dL (3.5-5.0); Blood Urea Nitrogen 20 mg/dL (7-17); Calcium 9.2 mg/dL (8.4-10.2); Carbon Dioxide 33 mmol/L (22-32); Chloride 102 mmol/L (98-107); Estimated Glomerular Filt Rate > 60 mL/min (>60); Glucose 83 mg/dL (80-110); HEMOLYSIS < 15 (0-50); Potassium 3.8 mmol/L (3.4-5.1); Sodium 139 mmol/L (137-145)
[2023-12-19 13:10] LABS: Prealbumin 24.5 mg/dL (17.6-36.0)
[2023-12-19 13:15] LABS: Hemoglobin A1C% w Est Avg Glu 5.3 % (4.0-6.0)
[2023-12-19 13:33] LABS: Vitamin D 25 Hydroxy (D3) 86.4 ng/mL (30.0-100.0)
== END ==
PROVIDERS: Family Provider Nurse Practitioner Family; PCP Internal Medicine; Referring Provider Orthopaedic Surgery Adult Reconstructive Orthopaedic Surgery; Visit Provider Orthopaedic Surgery Adult Reconstructive Orthopaedic Surgery
DX: Z01.818 Encounter for other preprocedural examination (principal); R73.9 Hyperglycemia, unspecified; E55.9 Vitamin D deficiency, unspecified; R77.0 Abnormality of albumin; Z01.812 Encounter for preprocedural laboratory examination
CPT/HCPCS: 36415; 80048; 82040; 82306; 83036; 84134; 85025; 93005

== ENCOUNTER → 2024-01-09 09:49 | Outpatient (CLI) | payer OTHER, SELFPAY ==
[2020-02-15 14:51] VITALS: BMI 22.4
--- NOTE | 2024-01-09 09:50 | DI.CT.S_ITS ---
PROCEDURE: CT LE LT W CON INDICATIONS: ARTHRITIS OF LEFT FOOT,SURGICAL PLANNING TECHNIQUE: Noncontrast 1-1.5 mm axial sections acquired from above the tibiotalar joint to the bottom of the calcaneus, with coronal and sagittal reformats. For radiation dose reduction, the following was used: automated exposure control, adjustment of mA and/or kV according to patient size. COMPARISON: [facility], CR, XR FOOT LT MIN 3V, 10/29/2023, 11:33. [facility] [place], CR, XR FOOT 3 VIEWS WEIGHT BEARING LEFT, 12/20/2023, 10:26. FINDINGS: Image quality: Excellent. Bones: Postsurgical changes are seen from prior 1st tarsometatarsal arthrodesis with 2 metallic screws. There is solid osseous fusion across the joint line. Ununited longitudinal fracture seen within the central navicular extending to the anterior and posterior articular surfaces. Severe degenerative changes are seen at the talonavicular joint with full-thickness joint space narrowing, subchondral cystic changes, marginal osteophytes, and remodeling of the articular surfaces. Moderate and severe degenerative changes are seen at the naviculocuneiform articulations. Moderate to severe degenerative changes at the 4th and 5th tarsometatarsal joints. Mild degenerative changes at the anterior subtalar joint. Mortise joint is normally aligned. Plantar calcaneal enthesophyte is present. Moderate degenerative changes at the 1st metatarsophalangeal joint and metatarsal-sesamoid articulations. Scattered degenerative changes are seen at the interphalangeal joints of the toes. Soft tissues: No tibiotalar effusion. The Achilles tendon appears thickened compatible with tendinosis. However, the tendons, ligaments, and articular cartilages are not well evaluated with CT. Mild fatty infiltration of the anterior forefoot musculature may be related to mild chronic denervation changes. IMPRESSION: 1. Postsurgical changes from 1st tarsometatarsal arthrodesis with solid osseous fusion across the joint line. 2. Nondisplaced longitudinal fracture of the central navicular, which may be chronic. 3. Severe talonavicular and naviculocuneiform osteoarthrosis. Moderate to severe degenerative changes are also seen at the 4th and 5th tarsometatarsal joints. Moderate degenerative changes throughout the forefoot. 4. Suspected Achilles tendinosis. Approved by: Natan Puckett M.D. on 01/09/2024 at 13:27
== END ==
PROVIDERS: Family Provider Nurse Practitioner Family; PCP Internal Medicine; Referring Provider Orthopaedic Surgery Foot and Ankle Surgery; Visit Provider Orthopaedic Surgery Foot and Ankle Surgery
DX: S92.255A Nondisplaced fracture of navicular [scaphoid] of left foot, initial encounter for closed fracture (principal); M19.072 Primary osteoarthritis, left ankle and foot; Z98.1 Arthrodesis status
CPT/HCPCS: 73700

== ENCOUNTER 2024-01-10 09:03 | Day surgery (SDC) | payer OTHER, SELFPAY ==
[2020-02-15 14:51] VITALS: BMI 22.4
[2024-01-07 11:23] VITALS: BMI 22.8
[2024-01-10] VITALS (13 sets, daily range): BP systolic 111–142; BP diastolic 53–90; PULSE 58–76; RESP 12–64; TEMP 36.3–37; O2SAT 97–100; BMI 23.1; BMI 26.1
--- NOTE | 2024-01-10 | DI.RAD.S_ITS ---
PROCEDURE: XR HIP W PEL IF DONE LT 2V INDICATIONS: LT HIP ANTERIOR TECHNIQUE: 2 view(s) of the hip acquired. COMPARISON: [facility], JOSE, XR HIP W PEL IF DONE LT 2V, 10/29/2023, 11:33. FINDINGS: Bones: Patient is status post left hip arthroplasty, with hardware components in expected positions. The hip joint appears congruent. The visualized bony structures appear intact. Soft tissues: Overlying postoperative changes are noted. No suspicious soft tissue densities. IMPRESSION: Expected post-operative appearance of a hip arthroplasty. Dictated by: Phyllis Dominique MD, PhD on 01/10/2024 at 14:08 Approved by: Phyllis Dominique MD, PhD on 01/10/2024 at 14:09
--- NOTE | 2024-01-10 | DI.RAD.S_ITS ---
PROCEDURE: XR HIP W PEL IF DONE LT 2V INDICATIONS: ANTERIOR TOTAL LEFT HIP TECHNIQUE: 2 view(s) of the hip acquired. COMPARISON: [facility], JOSE, XR HIP W PEL IF DONE LT 2V, 01/10/2024, 12:47. FINDINGS: Bones: Patient is status post left hip arthroplasty, with hardware components in expected positions. The hip joint appears congruent. The visualized bony structures appear intact. Soft tissues: Overlying postoperative changes are noted. No suspicious soft tissue densities. IMPRESSION: Expected post-operative appearance of a hip arthroplasty. Dictated by: Phyllis Dominique MD, PhD on 01/10/2024 at 14:29 Approved by: Phyllis Dominique MD, PhD on 01/10/2024 at 14:29
[2024-01-10] MEDS: LACTATED RINGERS 1,000 ML 42 ML IV ×2 (09:23→13:36)
[2024-01-10] MEDS: ACETAMINOPHEN 325 MG TABLET 975 MG PO (10:14)
[2024-01-10] MEDS: GABAPENTIN 600 MG TABLET PO (10:14)
--- NOTE | 2024-01-10 11:12 | PM.PREOP ---
Pre-operative Note Interval Note History & Physical reviewed/Exam performed by Physician: Yes Changes to H&P: No
[2024-01-10] MEDS: CEFAZOLIN 2 GM/100 ML PREMIX 100 ML IV (12:08)
[2024-01-10] MEDS: TRANEXAMIC ACID 1,000 MG in SODIUM CHLORIDE 0.9% 100 ML 200 MG IV ×2 (12:12→13:25)
--- NOTE | 2024-01-10 12:30 | SUR.OPER ---
Patient supine on padded [place] table, both arms on padded arm board at <90, both legs secured in padded traction boots and positioned per surgeon, padded post at patient's groin, pressure points checked and padded.
[2024-01-10] MEDS: ROPIVACAINE/EPI/CLONIDINE/KET 50 ML SYRINGE INJ (12:35)
--- NOTE | 2024-01-10 13:31 | PM.OP.1 ---
Operative Date/Time/Diagnoses Date of procedure: 01/10/24 Pre-op diagnosis: Left hip osteoarthritis and dysplasia Post-op diagnosis: same Procedure & Clinicians Procedure: Left total hip arthroplasty with dual mobility articulation Same procedure as scheduled: Yes Surgeon: Jagdeep Cárdenas Communications Supervisor: Hermelinda Landaverde Anesthesia Type: Spinal, Sedation and Local Operative Notes Estimated Blood Loss (mL): 200 Procedure in detail: Left Monoblock Dual Mobility Uncemented Direct Anterior Depuy Total Hip Arthroplasty: Implants: Bimentum size 53 cup? Actis femoral stem size 7 high offset? 28 mm +1.5 ceramic femoral head? 53/28 Bimentum Altrx liner Procedure Summary: This 68-year-old female patient had a prior spinal fusion, hip dysplasia, and equal leg lengths. In order to maximize jump distance prior to dislocation to minimize her risk of postoperative instability I utilized dual mobility and an anterior approach. I chose a mono block component to maximize head size and minimize the risk of corrosion between the liner and the cup. Because of her dysplasia I reamed medially down to the floor of the acetabulum to maximize superior lateral coverage of the cup. There was still a portion of the cup left uncovered however there was very good pinch fit with the Press-Fit 53 mm cup. I had templated her for a standard offset components however because of the more medial cup position I utilized a high offset stem. In order to minimize iatrogenic lengthening as she had started with the equal leg lengths I used the shortest head available. She had good stability, leg length, offset with this construct so those final implants were placed. Procedure in Detail: This patient was seen preoperatively and evaluated for hip pain which was refractory to numerous nonoperative treatment modalities. Their hip pain correlated with radiographic changes demonstrating significant degeneration in the hip joint. The risks and benefits of continued nonoperative management versus operative management were discussed at length and all of the patient?s questions were answered. Additional educational materials providing further details beyond our discussion in clinic were provided via a publicly available patient education video which included the incidence of medical complications associated with total hip arthroplasty, reasons for revision following total hip arthroplasty, and patient satisfaction rates following total hip arthroplasty. That video can be accessed at [email or web address] . With this understanding of the risks inherent to the procedure, the patient elected to move forward with operative management. Following preoperative optimization, the patient was scheduled for surgery. The patient was met in the preoperative holding area the day of the procedure and all questions were answered. The patient?s nares were swabbed with betadine in order to decolonize them from MRSA. Informed consent was signed and the left limb was marked with indelible ink.? The patient was brought back to the operating room where anesthesia was induced. The patient was transferred to the [place] table and all bony prominences were padded. The operative site was prepped and draped in the usual sterile fashion. Prior to incision, tranexamic acid and cefazolin were administered. Operative templating images were displayed demonstrating the anticipated implant sizes and correct operative extremity. A timeout procedure was performed verifying the patient?s identity, medical comorbidities, allergies, relevant medications, anesthesia type and the surgical plan. All present were in agreement. The assistance of a physician healthcare administrative assistant was required for positioning, room setup, soft tissue retraction and wound closure. Without this assistance, the procedure would have been significantly more challenging and time consuming.?? A direct anterior approach to the hip was utilized. This was performed with a longitudinal incision through a Heuter interval. The incision was planned 2 cm distal and 2 cm lateral to the ASIS extending towards the lateral patella, in line with the muscle body of the TFL. Following incision, the subcutaneous tissue was dissected while taking care to avoid injury to the lateral femoral cutaneous nerve. The fascia overlying the TFL was identified by dissecting off the overlying fat and identifying perforating vessels to the TFL. The TFL fascia was incised and dissected away from the medial border of the TFL. A cobra retractor was placed over the superior femoral neck between the abductors and the hip capsule and used to reflect the TFL laterally. A Butler self-retainer was then placed in the distal aspect of the wound between the TFL and the rectus femoris. This was tensioned to open up the direct anterior interval and the lateral circumflex vessels were identified and coagulated using electrocautery. The floor of the TFL fascia was incised, exposing the pericapsular fat overlying the hip capsule. A second cobra retractor was placed on the inferior femoral neck. A double-bent soft tissue retractor was placed on the anterior wall of the acetabulum and used to tension the reflected head of rectus femoris, which was then released in order to limit soft tissue tension. A capsulotomy was made in the midline of the anterior hip capsule in line with the femoral neck ending at the vastus tubercle. The double-bent retractor was removed in order to limit the amount of time that a soft tissue retractor remained on the anterior wall and protect the femoral nerve. Tag stitches were placed in the superior and inferior leaflets of the hip capsule. An Tyson soft tissue retractor was introduced over the tag stitches and tensioned in the interval between the rectus femoris and the TFL in order to retract and protect those muscles. The cobra retractors were replaced intracapsularly, with one over the superior neck in the pocket created by the base of the greater trochanter and the other on the femoral head. The capsulotomy was extended laterally to the base of the greater trochanter and medially to the lesser trochanter. This required externally rotating the hip. Once the lesser trochanter had been identified, a neck cut was planned according to measurements from preoperative templating. A ruler was cut at the length measured between the superior aspect of the lesser trochanter and the collar of the prosthesis. This line was extended towards the inferior aspect of the lateral cobra retractor to plan a cut which would leave minimal residual femoral neck laterally. The neck was cut at 60 degrees of external rotation along that line. A second cut was performed to remove a large napkin ring and facilitate head extraction. The napkin ring cut and femoral head were removed.?? A broad anterior wall retractor was placed between the labrum and the anterior capsule so that the anterior capsule would prevent capturing and pinching the femoral nerve anteriorly. An additional retractor was placed on the posterior wall. External rotation and traction were applied through the [place] table so that the cut surface of the femoral neck would not restrict access to the acetabulum. The labrum was excised sharply and the pulvinar was excised with electrocautery to limit bleeding from branches of the obturator artery. Acetabular reamers were selected based on preoperative templating and measurements of the excised femoral head. These were introduced into the acetabulum. Fluoroscopy was utilized to replicate a standing AP pelvis radiograph by centering over the pelvis, rotating until there was appropriate symmetry between the obturator foramen, and introducing caudal tilt to match the position of the pubic symphysis relative to the sacrococcygeal junction according to the patient?s anatomy. Fluoroscopy was utilized to ensure appropriate reaming depth. Once satisfied with the reaming depth corresponding to the preoperative template and the pinch fit between the columns, an appropriate sized acetabular cup was selected which would provide 1 mm of press-fit. This cup was introduced and manipulated until appropriate abduction and anteversion angles were obtained with careful attention to appropriate abduction and anteversion angles as evaluated by the position of the cup relative to the anterior and posterior rai of the acetabulum and the AP fluoroscopy which recreated the patient?s standing radiograph. The cup was impacted into place. Attention was then turned to the femur. All retractors were removed, traction was released, a retractor was placed in the interval between the hip capsule and the gluteus minimus, and the hip was externally rotated to 90 degrees. Traction was applied through the [place] table to tension the lateral capsule and this was released using electrocautery. Traction was released and a [place] hook was placed posteriorly around the proximal femur at the level of the vastus ridge. The table height was lowered in order to restrict the tension on the anterior structures during hip hyperextension to limit the risk of femoral nerve palsy. With traction off and the hip at 90 degrees of external rotation, the hip was hyperextended and adducted while manually elevating the femur away from the acetabulum with the [place] hook to ensure it would not be caught behind the greater trochanter. An asymmetric retractor was placed over the calcar and a broad double-pronged retractor was placed over the greater trochanter. The tag stitch capturing the lateral leaflet of the capsule was moved to the medial side, leaving the conjoined and piriformis tendons isolated in the face of the greater trochanter. The hip was externally rotated and elevated. A release of the conjoined tendon was not necessary in order to obtain adequate exposure for broaching. The canal was opened with an opening broach and a rasp was used to remove cancellous bone. A rongeur was used to remove the residual lateral bone at the base of the greater trochanter to avoid placing the stem in varus. The femur was then broached to the appropriate sized stem yielding good rotational fit and fill of the canal as well as appropriate version of the stem trial. Neck and head trials were placed, all retractors were removed and the hip was returned to neutral abduction and extension. I then reduced the hip. Initial trialing was performed with a size 7 broach, a high offset neck and a 28 mm +1.5 head with the dual mobility trial liner. I initially manually externally rotated the hip and found that it would not dislocate with 125? of external rotation. I then locked the hip in 45 degrees of external rotation and dropped it to the floor with traction off which demonstrated no instability. An AP pelvis fluoroscopic image matching the preoperative standing radiograph with both lesser trochanters visible and both hips in 40 degrees of external rotation demonstrated appropriate leg lengths and offset. Offset was possibly slightly increased as compared to the contralateral side however the contralateral side appeared to have less offset than she did on her standing radiographs. AP and lateral hip fluoroscopic images were obtained to evaluate the broach size which demonstrated appropriate canal fill. The hip was dislocated and I returned to the broaching position. Based on my evaluation during initial trialing I planned to place the definitive components concordant with the trials. The definitive stem was placed and the trunnion was cleaned and dried. The dual mobility head was assembled on the back table. I placed a ceramic head onto the trunnion and impacted it into place on the Nicholas taper.?? All retractors were removed and the hip was reduced. A dilute mixture of betadine and peroxide was used to bathe the soft tissues during final fluoroscopic assessment. Appropriate component positioning was confirmed on an AP pelvis radiograph with the operative and nonoperative legs in 40 degrees of external rotation, evaluating leg length and offset. Appropriate stem fill was evaluated on AP and lateral hip radiographs. No fractures were identified on these radiographs. There was no hip instability with maximum external rotation to 125? as well as a 45 degree drop test. The hip was copiously irrigated with pulse lavage. The capsule was closed with absorbable interrupted suture. The TFL fascia was closed with barbed suture while carefully protecting the lateral femoral cutaneous nerve from entrapment. A mixture of Ropivacaine, Epinephrine, Clonidine and Toradol was infiltrated throughout the soft tissues. The skin was closed with 2-0 and 3-0 sutures. Surgical glue was applied and a soft dressing was placed.??The sponge, instrument and needle counts were reported as being correct at the end of the case.??No obvious complications occurred. The patient was transferred from the [place] table back to a stretcher. The patient emerged from anesthesia without difficulty and was taken to the PACU in a stable condition.? Plan for aftercare: Anterior hip precautions Weightbearing as tolerated Aspirin 81 twice per day for DVT prophylaxis Anticipate discharge home today Change into normal clothes upon arrival on the hospital floor Mobilize in the halls as much as is logistically possible. If physical therapy is unavailable for mobilization, then patient should mobilize with nursing staff Multimodal pain regimen with no IV opioids ordered Apply ice machine to operative hip. Ensure that sufficient ice is in the chamber for the pad to remain cold Follow up at [facility] in 2 weeks Detailed postoperative instructions available at [email or web address]
[2024-01-10] MEDS: OXYCODONE IR 5 MG TABLET PO ×2 (14:33→17:45)
[2024-01-10] MEDS: LACTATED RINGERS 1,000 ML 100 ML IV (15:54)
[2024-01-10] MEDS: ACETAMINOPHEN 325 MG TABLET 650 MG PO (15:56)
--- NOTE | 2024-01-10 16:20 | PT.IIE ---
Current Diagnoses Unilateral primary osteoarthritis, left hip (01/10/24) Surgery Performed Operation Date: 01/10/24 10:45 Actual Procedures p Total Hip Arthroplasty/Anterior Approach(Left) - Jagdeep Cárdenas MD Surgical History (Last Updated 01/07/24 @ 12:09 by Lara Mohan RN) History of carpal tunnel surgery of left wrist History of carpal tunnel surgery of right wrist History of lumbar spinal fusion (02/15/20) History of repair of left rotator cuff (~1988) Hx of repair of right rotator cuff (12/2022) S/P carpal tunnel release Status post left foot surgery Status post right foot surgery Medical History (Last Updated 01/07/24 @ 12:11 by Lara Mohan RN) Anesthesia complication Arthritis Depression Easy bruisability Heart murmur Hypothyroid Neck pain Sciatica Seasonal allergies TMJ (dislocation of temporomandibular joint) Ventricular ectopy Physical Therapy Inpatient Evaluation/Re-Eval M1 PT/OT-IP Prior Functional Status Start: 01/10/24 18:01 Freq: NEEDED Status: Active Protocol: Document 01/10/24 16:20 AB (Rec: 01/10/24 18:14 AB [id number]) Medical Review Prior Functional Status Medical History Reviewed Yes Communication able to make needs known Mobility and Gait pt stated that she was independent with all mobilities and ambulation without AD Social History Household Members spouse Living Arrangements House Number of Floors (Floors) Two Floors Number of Stairs To Enter/Railing? pt stays on main level of the house has 3 steps R rail ascending to enter the house Home Environment High Toilet,Walk in Shower Home Equipment Four Wheel Walker,Shower Seat without Backrest,Grab Bars In Shower M2 PT-IP Current Condition Start: 01/10/24 18:01 Freq: NEEDED Status: Active Protocol: Document 01/10/24 16:20 AB (Rec: 01/10/24 18:14 AB [id number]) Physical Therapy Current Condition Current Condition Evaluation Date 01/10/24 Treatment Diagnosis s/p L CODIE anterior; difficulty in walking Onset Date 01/10/24 M3 PT-IP Subjective Start: 01/10/24 18:01 Freq: NEEDED Status: Active Protocol: Document 01/10/24 16:20 AB (Rec: 01/10/24 18:14 AB [id number]) Subjective Physical Therapy Visit Type Type Initial Evaluation Visit Start Time 16:20 Visit Stop Time 17:45 Number of RESIDENTIAL BUILDER Visits 0 Physical Therapy Visit Comments Patient Comments able to make needs known Therapy Pain Assessment Pain When Pain Assessed At Rest Pain Present Pain Present Pain Reported Location LEFT INNER THIGH Intensity 2 Scale Used Numeric (0 - 10) Pain Management Techniques Apply Cold,Distraction, Modification of Treatment,Re- positioning,Timing of Activity with Medications M4 PT-IP Mobility and Gait Start: 01/10/24 18:01 Freq: NEEDED Status: Active Protocol: Document 01/10/24 16:20 AB (Rec: 01/10/24 18:14 [id number]) PT-Bed Mobility Assessment Supine to Sit Supine to Sit Standby Assistance PT-Transfer Assessment Sit to and From Stand Sit to and from Stand Contact Guard Assistance,1 Person Assistance,Use of Upper Extremities Equipment Transfer Assistive Device Gait Belt,Front Wheeled Walker ,4 Wheeled Walker Orthotic/Prosthetic Devices or Brace: No Transfers Transfer Destination Chair Transfer Technique ambulated Transfer Ability Level of Assist Contact Guard Assistance,1 Person Assistance,Use of Upper Extremities Comments Mobility Comments pt supine in bed. spouse in room. obtained PLOF and home set up from pt and spouse. post-op folder provided and reviewed contents. educated pt and spouse regarding L hip anterior precautions. BP: 138/68 . pt completed supine to sit SBA. able to sit on EOB SBA. no c/o dizziness. completed sit to stand CGA and ambulated in room using FWW CGA ~ 15 ft. pt sat on the chair. Caregiver training conducted. educated spouse on how to use safety belt and how to assist pt. spouse was able to put safety belt on pt and assisted pt with sit to stand CGA. pt stated that she had used her 4WW when she had her back sx before and is familiar how to use a 4WW. pt ambulated in the hallway using 4WW ~ 125 ft CGA with spouse assisting. occasional cues provided. stair climbing training. PT demonstrated and educated pt and spouse on how to complete stair climbing. pt completed up/down 3 steps using R rail ascending min A and cues. assisted pt back to her room. ambulated from w/c to chair using 4WW CGA. positioned pt on the chair. set up for dinner. call light within reach. Gait Assessment Gait Gait Assistance Required: Contact Guard Assist,1 Person Assist Distance (Feet) 125 Able to Maintain Weight Bearing Status Yes During Gait Assistive Devices Assistive Device Gait Belt Orthotic/Prosthetic Devices or Brace: No Gait Deviations General Gait Pattern Decreased Feet Clearance Factors Limiting Gait Function Factors Limiting Gait Function Decreased Activity Tolerance, Decreased Strength,Limited Range of Motion,Pain,Poor Balance,Poor Safety Awareness Stair Climbing Assessment Evaluation Level of Assist On Stairs Minimal Assistance Devices Stair Climbing Assistive Devices Right Railing Technique/Endurance Stair Climbing Direction Ascend and Descend Stair Climbing Technique Step to Step Number of Steps Climbed 3 Query Text: Stair Climbing Set # Repetitions (reps) 1 PT-Balance Assessment Sitting Balance and Reactions Static Sitting Balance Ability Normal Dynamic Sitting Balance Ability Good Standing Balance and Reactions Static Standing Balance Ability Fair Dynamic Standing Balance Ability Fair Device Used FWW M5 PT-IP Objective Assessments Start: 01/10/24 18:01 Freq: NEEDED Status: Active Protocol: Document 01/10/24 16:20 AB (Rec: 01/10/24 18:14 AB [id number]) Orientation Orientation/Cognition Level of Alertness Alert Orientation Name,Situation Language Function Ability No Deficits Noted Safety Awareness Decreased Safety Awareness Memory Description Short Term Impaired Gross Range of Motion Lower Extremity ROM Assessment Within Functional Limits Strength Lower Extremity Strength Assessment Left Impaired Hip 3-/5 Knee 4-/5 Sensation Assessment Sensation Gross Sensation WNL Muscle Tone Muscle Tone WNL Yes M6 PT-IP Treatment Start: 01/10/24 18:01 Freq: NEEDED Status: Active Protocol: Document 01/10/24 16:20 AB (Rec: 01/10/24 18:14 AB [id number]) Physical Therapy Treatment Education Education Provided Precautions,Weight Bearing Status,Post-Op Packet,Safety M7 PT-IP Assessment and Plan Start: 01/10/24 18:01 Freq: NEEDED Status: Active Protocol: Document 01/10/24 16:20 AB (Rec: 01/10/24 18:14 AB [id number]) PT Summary Assessment and Plan Potential Rehabilitation Potential Fair Status of Condition at Evaluation Stable Summary Impairments Pain,ROM,Strength,Balance, Coordination,Sensation,Tone, Cognition,Bed Mobility, Transfers,Gait,Activity Tolerance Assessment Summary pt is a 68 y/o F s/p L CODIE anterior approach POD 0. pt has L hip anterior precautions and is WBAT. pt requiring CGA with transfers and ambulation using 4WW and min A for stair climbing using R rail. caregiver training conducted and spouse was able to assist pt safely. pt may go home when medically stable. Goals Bed Mobility Goal Independent Transfer Goal Independent,Four Wheeled Walker Gait Goal Independent,Four Wheel Walker Gait Distance 300 Other Goals up/down 3 steps R rail ascending mod I Days to Meet Goals 3 Frequency of Treatment Frequency Of Treatment Twice a Day Treatment Plan Physical Therapy Treatment Plan Bed Mobility Training,Transfer Training,Gait Training, Therapeutic Exercise,Balance Retraining,Post Op Education, Discharge Planning,Hot or Cold Pack,Neuromuscular Re-ed, Coordination Retraining,Manual Therapy Precautions Anterior Hip Precautions No Hip Extension,No Hip External Rotation Weight Bearing Status Weight Bearing Status Weight Bear as Tolerated Allowed Weight Bearing Amount (enter % LLE WBAT or #) (%) Recommendations To Nursing Amount of Assist Needed 1 Person Assist Discharge Recommendations PT Discharge Recommendations Home with Assistance, Outpatient PT Transportation Needs at Discharge Private Vehicle
--- NOTE | 2024-01-10 16:41 | PC.NURSE ---
Day shift: Pt tolerating water, broth and crackers. She states I do want and plan to go home today. Working with PT ([id number]). There is no d/c order in at this time. VS WNL. RA 99%. Spouse at bedside for support. IV infusing per SEP. CMS ok and PPP. AGrees to not get OOB w/o help from staff. Oriented to room and call light. Call light in reach. Will continue with post-op plan of care.
--- NOTE | 2024-01-10 17:20 | PM.PN.1 ---
Subjective Subjective Interval history: Patient seen postoperatively. Walking down the [place] with physical therapy. Using a 4 wheeled walker. walking next to her practicing assisting. She has not requiring any assistance at this time. She has consistently reported minimal pain since surgery. My plan remains for her to go home this evening. Following the conclusion of her mobility assessment with physical therapy we will have arrangements in place for her to discharge home. Exam Vital Signs (past 8 hours): - 01/10/24 10:01 01/10/24 13:55 01/10/24 14:00 Temperature 98.4 F 97.6 F Pulse Rate 59 L 65 76 Respiratory Rate 17 12 16 Blood Pressure 118/66 111/53 L 116/65 Pulse Oximetry 97 98 97 Oxygen Delivery Method Room Air Room Air Room Air Oxygen Flow Rate 01/10/24 14:05 01/10/24 14:15 01/10/24 14:30 Temperature Pulse Rate 72 61 62 Respiratory Rate 12 64 H 13 Blood Pressure 120/69 132/71 142/68 H Pulse Oximetry 97 99 100 Oxygen Delivery Method Room Air Room Air Room Air Oxygen Flow Rate 01/10/24 14:44 01/10/24 15:00 01/10/24 15:20 Temperature 97.8 F 97.8 F Pulse Rate 67 60 63 Respiratory Rate 12 17 16 Blood Pressure 134/68 122/66 114/90 Pulse Oximetry 99 98 98 Oxygen Delivery Method Room Air Oxygen Flow Rate 0 0 01/10/24 16:10 01/10/24 17:09 Temperature Pulse Rate 58 L 65 Respiratory Rate 17 18 Blood Pressure 142/68 H 137/90 Pulse Oximetry 98 97 Oxygen Delivery Method Oxygen Flow Rate 0 0 Oxygen Delivery Method Room Air Oxygen Flow Rate 0 PFSH Medical History (Updated 01/07/24 @ 12:11 by Lara Mohan RN) Anesthesia complication Depression Easy bruisability Neck pain Arthritis Ventricular ectopy Heart murmur Seasonal allergies TMJ (dislocation of temporomandibular joint) Sciatica Hypothyroid Surgical History (Updated 01/07/24 @ 12:09 by Lara Mohan RN) History of carpal tunnel surgery of left wrist History of carpal tunnel surgery of right wrist Hx of repair of right rotator cuff (12/2022) History of lumbar spinal fusion (02/15/20) History of repair of left rotator cuff (~1988) Status post right foot surgery Status post left foot surgery S/P carpal tunnel release Social History (Updated 01/24/18 @ 12:49 by Ana Mcfadden PA-C) household members: spouse Smoking Status: Never smoker alcohol intake: never Quality VTE Deep Vein Thrombosis/Pulmonary Embolism Present on Admission: No
== END 2024-01-10 20:12 | disposition home or self-care (01) ==
LOC: OR 09:04 → AC 09:04
PROVIDERS: Family Provider Nurse Practitioner Family; PCP Internal Medicine; Referring Provider Orthopaedic Surgery Adult Reconstructive Orthopaedic Surgery; Visit Provider Orthopaedic Surgery Adult Reconstructive Orthopaedic Surgery
PROC: (CPT 27130; principal; 2024-01-10 10:45)
DX: M16.12 Unilateral primary osteoarthritis, left hip (principal)
CPT/HCPCS: 27130; 73502; 76000; 97161; 97530; C1776; J0690; J1100; J2250; J2704; J3010

== ENCOUNTER 2024-02-26 11:36 | Day surgery (SDC) | payer OTHER, SELFPAY ==
[2024-01-10 16:07] VITALS: BMI 26.1
[2024-02-20 15:06] VITALS: BMI 23.8
--- NOTE | 2024-02-26 | DI.RAD.S_ITS ---
PROCEDURE: XR FOOT LT MIN 3V INDICATIONS: FUSION MEDIAL COLUMN LEFT FOOT TECHNIQUE: Multiple intraoperative views of the foot were acquired. COMPARISON: [facility], CR, XR FOOT LT MIN 3V, 10/29/2023, 11:33. FINDINGS: Bones: Multiple intraoperative views during medial column fusion demonstrate intact hardware. IMPRESSION: Multiple intraoperative views during medial column fusion demonstrate intact hardware. Dictated by: Vikash Melendrez M.D. on 02/26/2024 at 18:51 Approved by: Vikash Melendrez M.D. on 02/26/2024 at 18:52
[2024-02-26] MEDS: LACTATED RINGERS 1,000 ML 42 ML IV ×2 (11:58→14:05)
[2024-02-26] MEDS: ACETAMINOPHEN 325 MG TABLET 975 MG PO (12:32)
[2024-02-26 12:33] VITALS: BP 123/78; PULSE 65; RESP 16; TEMP 36.6; O2SAT 98; BMI 23.8
--- NOTE | 2024-02-26 12:38 | SUR.PREOP ---
AWAITING BLOCKS PER ANESTHESIA
--- NOTE | 2024-02-26 12:59 | SUR.PREOP ---
DR CHANDLER VISITS - DR PALM ABOUT TO DO BLOCKS
--- NOTE | 2024-02-26 13:02 | PM.PREOP ---
Pre-operative Note Interval Note History & Physical reviewed/Exam performed by Physician: Yes Changes to H&P: No
--- NOTE | 2024-02-26 13:36 | SUR.PREOP ---
Block start time [1305 ] . Monitoring initiated and maintained throughout procedure. Oxygen and medications given per anesthesiologist. Patient remained stable throughout procedure, no adverse reactions noted. Block end time [1318 ].
--- NOTE | 2024-02-26 13:37 | SUR.PREOP ---
Block start time [1304 time out performed with this nurse and Dr Mattson ] . Monitoring initiated and maintained throughout procedure. Oxygen and medications given per anesthesiologist instructions. Patient remained stable throughout procedure, no adverse reactions noted. Block end time [].
[2024-02-26] MEDS: CEFAZOLIN 2 GM/100 ML PREMIX 100 ML IV (13:40)
--- NOTE | 2024-02-26 13:59 | SUR.OPER ---
Supine on padded OR bed, head on pillow, arms secured on padded arm boards at <90 degrees abduction, legs uncrossed, safety belt at abdomen, tape over blanket over lower non operative leg.
[2024-02-26] MEDS: BUPIVACAINE 0.25% (PF) 30 ML, EPINEPHrine 0.15 MG INJ (14:05)
[2024-02-26 16:36] VITALS: BP 121/54; PULSE 75; RESP 12; TEMP 36.9; O2SAT 95
--- NOTE | 2024-02-26 16:36 | PM.OP.1 ---
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 She was indicated for fusion surgery of her medial column talonavicular and navicular cuneiform joints due to her chronic pain failure of conservative treatments and posttraumatic arthritis. Surgeon: Catrina Escamilla Click Yes if Unassisted: Yes Anesthesia Type: General, Peripheral nerve block and Local Operative Notes Findings: Advanced posttraumatic arthritis navicular cuneiform and talonavicular joints with osteophytes and degenerative pes planus. 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 AVN of the lateral navicular excised. Talonavicular and navicular cuneiform joints were prepared and fused using plates and screws from the paragon 28 system. Closure Type: primary Specimen(s): none sent Prosthetic devices, grafts, tissues, transplants, or devices: New [place] 28 short medial column plate left with 3.5 locking and nonlocking screws 4.0 headless cannulated screw long thread 4.5 headed fully-threaded screw Cancellous chips for bone graft Estimated Blood Loss (mL): 50 Blood products transfused: none Tourniquet time (min): 120 Procedure in detail: Patient was seen in the preoperative area and the site of surgery was marked informed consent confirmed this was the left lower extremity. The patient was brought to the block room and a peripheral nerve block was placed by the anesthesia team for postoperative pain control. She was then taken to the operating room positioned supine on operative table. The left lower extremity was prepped and draped in the standard sterile fashion and a well-padded thigh tourniquet was applied. A formal time-out procedure was performed confirming the patient side and site of surgery administration of appropriate preoperative antibiotic presence of informed consent. All were in agreement. Left lower extremity was elevated and exsanguinated tourniquet was elevated. Attention turned to the foot the C-arm was brought in to junior out the area of the navicular nonunion dorsal laterally and the bony landmarks. Next decision was made to do a dual dorsal lateral and medial approach. The dorsal lateral approach was taken down 1st just lateral to the neurovascular bundle in line with the lateral border of the 2nd metatarsal and 3rd metatarsal junction. So taken down through the skin subcutaneous tissue. Neurovascular bundle was retracted medially. Capsule over the talonavicular and navicular cuneiform joints was then opened. The lateral navicular was identified the nonunion site was identified. An osteotome was used to help loosen this and the part of the lateral navicular was excised. This was inspected and was confirmed to be bone consistent with AVN. At this point through the lateral approach the talar head remainder of the navicular and cuneiform bone were denuded of cartilage then prepped for fusion. Then attention was turned medially and a midline medial incision was made from the talus across the navicular tuberosity to the medial cuneiform was taken down through the skin subcutaneous tissue to the level of the bone medially and again the talonavicular and navicular cuneiform joints were isolated. The K-wire retractor was placed distracting the joint and allowing preparation of the joint surfaces for fusion. This was denuded of all cartilage down to the subchondral surface which was then fenestrated using the bur and fenestrating drill. Bone graft was utilized and then the talonavicular and navicular cuneiform joints were pinned in place and a reduction maneuver. Dorsal osteophytes were removed with a rongeur. Reduction was confirmed on multiplanar intraoperative fluoroscopy and once I was happy with the alignment fixation began. First I used a cannulated wire for a 4.0 headless screw from the navicular into the talus from a plantar to dorsal direction this was drilled and placed. Next the short medial column plate was fixed to the bone and positioned provisionally with olive wires and then with nonlocking 3.5 screws followed by locking screws. At the end of the procedure the distal nonlocking screw which was loose was changed out for a locking screw. An additional 4.5 cannulated fully threaded screw was placed from the medial cuneiform into the talus as an additional out long strut screw. Cancellous chips bone graft was then placed around the fusion site. Final x-rays confirmed appropriate alignment and hardware placement in AP oblique and lateral views. Tourniquet was released hemostasis was achieved. Capsule was closed with 2-0 Vicryl. Deep tissue with 2-0 Vicryl and the skin with 4-0 Monocryl and 3-0 Vicryl and 4-0 nylon. All counts were correct. 20 cc of 0.25% Marcaine with epinephrine was injected as a local anesthetic. Sterile dressings were placed with Xeroform gauze Webril and a bulky [place] splint with posterior and U slabs. The patient was awoken from anesthetic and taken to the recovery room in good condition. Complications: none Post-operative Condition: stable Disposition: PACU Plan for aftercare: Nonweightbearing approximately 12 weeks. We will be converted to a cast at the 1st postop appointment. Aspirin for DVT prophylaxis.
[2024-02-26 16:41] VITALS: BP 126/69; PULSE 81; RESP 12; O2SAT 96
[2024-02-26 16:46] VITALS: BP 115/41; PULSE 83; RESP 12; O2SAT 94
[2024-02-26 17:04] VITALS: BP 133/41; PULSE 85; RESP 12; TEMP 36.8; O2SAT 94
[2024-02-26] MEDS: ONDANSETRON 4 MG/2 ML INJ IV (17:35)
== END 2024-02-26 17:50 | disposition home or self-care (01) ==
PROVIDERS: Family Provider Nurse Practitioner Family; PCP Internal Medicine; Referring Provider Orthopaedic Surgery Foot and Ankle Surgery; Visit Provider Orthopaedic Surgery Foot and Ankle Surgery
PROC: (CPT 27870; principal; 2024-02-26 13:15)
DX: M19.072 Primary osteoarthritis, left ankle and foot (principal); S92.252K Displaced fracture of navicular [scaphoid] of left foot, subsequent encounter for fracture with nonunion; G89.18 Other acute postprocedural pain; M25.775 Osteophyte, left foot; M87.9 Osteonecrosis, unspecified
CPT/HCPCS: 28730; 64450; 73630; 76000; J0171; J0690; J1100; J1170; J2250; J2405; J2704; J3010

== ENCOUNTER → 2024-06-04 08:40 | Outpatient (CLI) | payer OTHER, SELFPAY ==
[2024-01-10 16:07] VITALS: BMI 26.1
--- NOTE | 2024-06-04 | DI.MG.S_ITS ---
BILATERAL DIGITAL DIAGNOSTIC MAMMOGRAM 3D/2D: 06/04/2024 CLINICAL: Right breast lump. Comparison is made to exams dated: 11/26/2022 mammogram, 10/19/2021 mammogram, 05/06/2017 mammogram, and 05/07/2016 mammogram - [facility]. The breasts are heterogeneously dense, which may obscure small masses (category c / 51-75% glandular tissue). There is a new irregular mass in the right breast at 4 o'clock posterior depth. This correlates as palpated. No other significant masses, calcifications, or other findings are seen in either breast. IMPRESSION: INCOMPLETE: NEED ADDITIONAL IMAGING EVALUATION The new irregular mass in the right breast is indeterminate. A targeted ultrasound is recommended and will immediately follow. Based on the Tyrer Cuzick model (a risk assessment model) the patient's lifetime risk is 16.6% and her 10 year risk is 9.4%. According to the ACR, ACS, and NCCN guidelines, an annual breast MRI exam along with mammogram is recommended if the patient's lifetime risk is 20% or greater. This exam was interpreted at Station ID: [id number]. NOTE: For mammograms, a report in lay terms will be sent to the patient. Approximately 15% of breast malignancies will not be visualized mammographically. In the management of a palpable breast mass, a negative mammogram must not discourage biopsy of a clinically suspicious lesion. Electronically Signed By: Chencho Betts M.D. slc/:06/04/2024 09:37:33 letter sent: Additional Imaging Needed ACR BI-RADS Category 0: Incomplete: Need Additional Imaging Evaluation
--- NOTE | 2024-06-04 | DI.US.S_ITS ---
LIMITED ULTRASOUND OF RIGHT BREAST AND AXILLA: 06/04/2024 CLINICAL: Palpable right breast lump. Comparison is made to exams dated: 06/04/2024 mammogram, 11/26/2022 mammogram, 10/19/2021 mammogram, 05/06/2017 mammogram, 05/07/2016 mammogram, and 05/26/2015 mammogram - [facility]. Color flow and real-time ultrasound of the right breast 4 o'clock, and axilla regions were performed. Morales scale images of the real-time examination were reviewed. There is a 0.9 cm x 0.6 cm x 0.6 cm mass with a spiculated margin in the right breast at 4 o'clock posterior depth 10 cm from the nipple. This mass is hypoechoic. This correlates as palpated and with mammography findings. Color flow imaging demonstrates that there is an adjacent vascularity. Lesion appears to abut the chest wall. No significant abnormalities were seen sonographically in the right axilla. IMPRESSION: HIGHLY SUGGESTIVE OF MALIGNANCY The 0.9 cm x 0.6 cm x 0.6 cm mass in the right breast is highly suggestive of malignancy. Lesion appears to abut the chest wall. An ultrasound guided biopsy is recommended. No enlarged right axillary lymph nodes. Exam findings were discussed with the patient. This exam was interpreted at Station ID: [id number]. Electronically Signed By: Chencho Betts M.D. [facility]/:06/04/2024 10:29:48 letter sent: Biopsy Required ACR BI-RADS Category 5: Highly Suggestive of Malignancy
== END ==
PROVIDERS: Family Provider Nurse Practitioner Family; PCP Family Medicine; Referring Provider Family Medicine; Visit Provider Family Medicine
DX: N63.13 Unspecified lump in the right breast, lower outer quadrant (principal); R92.333 Mammographic heterogeneous density, bilateral breasts; Z80.3 Family history of malignant neoplasm of breast
CPT/HCPCS: 76642; 77066; G0279

== ENCOUNTER → 2024-06-24 08:48 | Outpatient (CLI) | payer OTHER, SELFPAY ==
[2024-01-10 16:07] VITALS: BMI 26.1
--- NOTE | 2024-06-24 | PATH_ITS ---
[facility] Accession Number: [id number] No. of containers.. Tissue . 01 Material submitted: . breast - RIGHT BREAST MASS 4:00 10CMFN . 01 Diagnosis: RIGHT BREAST MASS, 4 O'CLOCK, 10 CM FROM NIPPLE, NEEDLE CORE BIOPSIES: Invasive ductal carcinoma; see Case Summary. . CASE SUMMARY, INVASIVE CARCINOMA OF THE BREAST BIOPSY Specimen Procedure: Needle biopsy. Specimen laterality: Right. Tumor Tumor site: Lower inner quadrant. Clock position: 4 o'clock. Distance from nipple: 10 cm. 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 Histologic grade Winn score Tubular differentiation: Score 3. Nuclear pleomorphism: Score 2. Mitotic rate: Score 1. Overall grade: Grade 2. Largest invasive focus in this limited biopsy sample: 2 mm. Ductal carcinoma in situ: Not identified. Lymphovascular invasion: Not identified. Microcalcifications: Not identified. Special studies Predictive marker immunohistochemical studies are performed on block A1 with the invasive carcinoma showing the following results: . Estrogen receptor (SP1): Positive (90%, average intensity of staining strong). Progesterone receptor (1E2): Positive (70%, average intensity of staining, strong). Her2 (4B5) by immunohistochemistry: Negative (1+). . Internal controls for ER and UT are positive. Cold ischemic time is not provided. The scoring criteria for breast biomarkers by immunohistochemistry is based on the ASCO/CAP guidelines (Jil AC et al, J Clin Oncol: 2018 Jan 28;36(20):0497-5616 and Ralph ME et al, Arch Pathol Lab Med: 2009;134(6):907-22). Deparaffinized sections of formalin fixed tissue (along with appropriate positive controls) are incubated with the above antibody(s). Using the automated [place] stainer, tissue is incubated with the designated antibody which is then localized by a non-biotin, dual polymer detection system. The external controls are reviewed for appropriate reactivity and found to be adequate. Results on the target cell population are indicated above. These tests have not been validated on decalcified tissue. MRV 06/26/2024 1512 Local . 01 Comment: As part of routine quality assurance monitor body, Dr. Blackwell has reviewed this case and agrees with the diagnosis of ductal carcinoma. The finding of carcinoma was discussed between Dr. Bronson and Dr. Sheldon on 06/25/2024 at 3:45 p.m. . 01 Electronically signed: . Christiano Sheldon MD, PhD, Pathologist NPI- [id number] . 01 Gross description: . Received is one formalin-filled container labeled with the patient's name designated right breast mass 4 o'clock 10 cm FN. The specimen is received with a plastic filter in container, part of sample received in filter and part loose in container, and consists of multiple fragments of yellow-whelan to whelan-cantu soft tissue and clotted blood which range in size from 0.2 x 0.2 x 0.2 cm to 1.2 x 0.5 x 0.4 cm. The specimen is entirely submitted in cassette A1. . Possible collection date and time per requisition 06/24/2024 at 1012 hours. Total fixation time approximately 17 hours. (DC:[id number]) /ARELI 06/25/2024 0521 Local . 01 Microscopic: . Sections are of breast parenchyma and adipose tissue infiltrated by proliferation of epithelioid cells in a nested growth pattern, consistent with adenocarcinoma. The malignant cells are strongly and diffusely positive for e-cadherin immunoreactivity, consistent with ductal carcinoma. The malignant cells are positive for estrogen receptor and progesterone receptor immunoreactivity. The malignancy cells are negative (1+) for HER2 overexpression. All control stains show appropriate reactivity. . * This test was developed and the performance characteristics were validated by [facility]. It has not been cleared or approved by the U.S. Food and Drug Administration. . 01 Pathologist provided ICD-10: C50.311 . 01 CPT . 160919, G99172, 167314, 228220, 742217 Performed at: 01 [facility] [address] [address], [place], [place] [id number] MD Issa Vale MD Phone: [phone]
--- NOTE | 2024-06-24 08:50 | DI.MG.S_ITS ---
UNILATERAL RIGHT DIGITAL DIAGNOSTIC MAMMOGRAM 3D/2D - RIGHT BREAST POST-PROCEDURE IMAGING FOR MARKER PLACEMENT: 06/24/2024 CLINICAL: Post right breast ultrasound biopsy, clip placement imaging. Comparison is made to exams dated: 11/26/2022 mammogram, 10/19/2021 mammogram, and 05/06/2017 mammogram - [facility]. There are scattered areas of fibroglandular density (category b / 25%-50% glandular tissue). There is a marker clip in the appropriate position in the right breast at 4 o'clock posterior depth 10 cm from the nipple. This is demonstrated by prior ultrasound. This marker clip placement is at the biopsy site. This correlates with ultrasound findings. IMPRESSION: POST PROCEDURE MAMMOGRAM FOR MARKER PLACEMENT There was a successful marker clip placement in the right breast at 4 o'clock, 10 cm from the nipple, corresponding to the biopsied 0.9 cm mass. This exam was interpreted at Station ID: [id number]. NOTE: For mammograms, a report in lay terms will be sent to the patient. Approximately 15% of breast malignancies will not be visualized mammographically. In the management of a palpable breast mass, a negative mammogram must not discourage biopsy of a clinically suspicious lesion. Electronically Signed By: Darryl Pringle M.D. sd/:07/01/2024 06:07:24 ACR BI-RADS Category Post-Procedure Mammogram for Marker Placement
--- NOTE | 2024-06-24 08:50 | DI.US.S_ITS ---
PROCEDURE: US BX BREAST PERC W VAC DEVICE COMPARISON: None. INDICATIONS: RIGHT BREAST 4:00 10 CMFN MASS BIOPSY FINDINGS: IMPRESSION: Dictated by: Darryl Pringle M.D. on 07/31/2024 at 14:07 Approved by: Darryl Pringle M.D. on 07/31/2024 at 14:08
== END ==
PROVIDERS: PCP Family Medicine; Referring Provider Family Medicine; Visit Provider Family Medicine
DX: C50.311 Malignant neoplasm of lower-inner quadrant of right female breast (principal); Z17.0 Estrogen receptor positive status [ER+]
CPT/HCPCS: 19083; 77065

== ENCOUNTER → 2024-07-07 08:29 | Outpatient (CLI) | payer OTHER, SELFPAY ==
[2024-01-10 16:07] VITALS: BMI 26.1
--- NOTE | 2024-07-07 | DI.US.S_ITS ---
PROCEDURE: US EXTREMITY NONVASC UPPER LT INDICATIONS: LEFT ARM LUMP TECHNIQUE: Real-time scanning was performed of the left forearm , with image documentation. COMPARISON: None. FINDINGS: There is a well-circumscribed bilobed subcutaneous lesion which appears encapsulated and measures up to 0.9 cm abutting the superficial fascia along the posterior left forearm. IMPRESSION: Small bilobed in capsulated 0.9 cm lesion within the dorsal left forearm, possibly a ganglion cyst. Dictated by: Issa Milan M.D. on 07/07/2024 at 16:51 Approved by: Issa Milan M.D. on 07/07/2024 at 17:13
--- NOTE | 2024-07-07 | DI.US.S_ITS ---
PROCEDURE: US PELVIC COMPLETE INDICATIONS: SPOTTING TECHNIQUE: Real-time scanning was performed of the pelvic organs, with image documentation. Additional endovaginal scanning was necessary due to incomplete visualization of the adnexal and endometrial structures by transabdominal scanning. COMPARISON: None. FINDINGS: Uterus: Uterus is retroverted and normal in size at 8.1 x 4.2 x 5.7 cm. The myometrium is heterogeneous. Submucosal calcified fibroid measuring 4.2 x 3.7 x 4.4 centimeters distorts the endometrium. The endometrium is not well seen. Ovaries: The ovaries are not seen. Other: No pathologic free abdominal or pelvic fluid. IMPRESSION: Submucosal fibroid measuring 4.4 centimeters may be cause of patient's symptoms. The fibroid abuts the endometrium and the endometrium is not well seen. The ovaries are not seen. We strive to produce accurate, complete, and clear reports of imaging services. To assist us in improving patient care, this report was composed using standard report templates and voice recognition software. Therefore, it may contain abnormal punctuation, insertions and/or omissions. Occasional wrong-word or sound-alike substitutions may occur. Though we review the report and make efforts to correct it, we do recommend that the report be read carefully in proper context to recognize any text inaccuracies. Dictated by: Vikash Melendrez M.D. on 07/07/2024 at 11:29 Approved by: Vikash Melendrez M.D. on 07/07/2024 at 11:31
== END ==
PROVIDERS: PCP Family Medicine; Referring Provider Family Medicine; Visit Provider Family Medicine
DX: N92.0 Excessive and frequent menstruation with regular cycle (principal); D25.0 Submucous leiomyoma of uterus; R22.32 Localized swelling, mass and lump, left upper limb
CPT/HCPCS: 76830; 76856; 76882

== ENCOUNTER → 2024-07-17 11:33 | Outpatient (CLI) | payer OTHER, SELFPAY ==
[2024-01-10 16:07] VITALS: BMI 26.1
--- NOTE | 2024-07-17 11:34 | DI.NM.S_ITS ---
PROCEDURE: NM SENTINEL NODE INJECT ONLY RADIOPHARMACEUTICAL: 0.5-1.0 mCi Millipore filtered Tc-99m sulfur colloid. INDICATIONS: R lumpectomy COMPARISON: None. PROCEDURE: The area around the nipple was prepped and draped in a sterile fashion. Tc-99m sulfur colloid was injected intra-dermally around the outer edge of the areola in the right breast. No image was obtained. IMPRESSION: Administration of radiotracer into the right breast periareolar region for intra-operative sentinel lymph node localization. Dictated by: Vikash Melendrez M.D. on 07/17/2024 at 16:22 Approved by: Vikash Melendrez M.D. on 07/17/2024 at 16:23
== END ==
PROVIDERS: PCP Family Medicine; Referring Provider Surgery; Visit Provider Surgery
DX: C50.311 Malignant neoplasm of lower-inner quadrant of right female breast (principal); Z17.0 Estrogen receptor positive status [ER+]
CPT/HCPCS: 38792; A9541

== ENCOUNTER 2024-07-17 11:56 | Day surgery (SDC) | payer OTHER, SELFPAY ==
[2024-01-10 16:07] VITALS: BMI 26.1
[2024-07-07 11:43] VITALS: BMI 22.1
--- NOTE | 2024-07-17 | PATH_ITS ---
[facility] Accession Number: [id number] No. of containers..02 Tissue . 01 Material submitted: . PART A: breast - R BREAST TISSUE PART B: axillary tail of breast - RIGHT AXILLARY SENTINEL NODE . 01 Diagnosis: A. RIGHT BREAST TISSUE: Invasive carcinoma of the breast; please see case summary. . B. RIGHT AXILLARY SENTINEL NODE: One lymph node negative for metastatic carcinoma by immunohistochemistry studies (0/1); please see case summary. . . CASE SUMMARY - INVASIVE CARCINOMA OF THE BREAST EXCISION . Specimen Procedure: Excision (less than total mastectomy). Specimen laterality: Right. . Tumor Tumor site: Lower inner quadrant. Specified clock position: 4 o'clock. Specified distance from nipple: 10 cm from nipple. . 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 Histologic grade Glandular/tubular differentiation: Score 3 of 3. Nuclear pleomorphism: Score 2 of 3. Mitotic rate: Score 1 of 3. Overall grade: Grade 2 (score 6/9). . Tumor size: 19 mm. Tumor focality: Single focus of invasive carcinoma. . Ductal carcinoma in situ: Present. Estimated size: 7 mm (slice 1). Architectural patterns: Solid. Nuclear grade: Grade 1 (low). Necrosis: Not identified. . Tumor extent Skiin invasion: Carcinoma does not directly invade into the dermis or epidermis. . Lymphatic and/or vascular invasion: Not identified. . Margins Margin status for invasive carcinoma Margins involved by invasive carcinoma: Posterior margin over a region of 16 mm (slices 8-11 of 13, lateral to medial). Distance to anterior margin: 4 mm (slice 8 of 13, lateral to medial). Distance to superior margin: Greater than 10 mm. Distance to inferior margin: within 1 mm (slice 9 of 13, lateral to medial). Distance to medial margin: 8 mm. Distance to lateral margin: Greater than 10 mm. . Margin status for DCIS: All margins negative for DCIS. Distance from DCIS to closest margin: Within 1 mm of lateral margin (slice 1 of 13, lateral to medial). All other margins: Greater than 10 mm. . Regional lymph nodes Regional lymph node status: Negative for tumor. Number of lymph nodes with macrometastasis: 0. Number of lymph nodes with micrometastasis: 0. Number of lymph nodes with isolated tumor cells: 0. Total number of lymph nodes examined (sentinel and non-sentinel): 1. Number of sentinel nodes examined: 1. . pTNM classification (AJCC 8th Edition): pT1c pN0(sn). . Special studies: Predictive marker immunohistochemical studies are performed on block A5 with the invasive carcinoma showing the following results: . Estrogen receptor (SP1): Positive (91-100%, strong intensity). Progesterone receptor (1E2): Positive (51-60%, moderate intensity). Her2 (4B5): Negative (1+). . . Internal controls for ER and MT are positive. Cold ischemic time is not provided. The scoring criteria for breast biomarkers by immunohistochemistry is based on the ASCO/CAP guidelines (Jil AC et al, J Clin Oncol: 2017Jan 28;36(20):4512-6890 and Ralph ME et al, Arch Pathol Lab Med: 2009;134(6):907-22). Deparaffinized sections of formalin fixed tissue (along with appropriate positive controls) are incubated with the above antibody(s). Using the automated [place] stainer, tissue is incubated with the designated antibody which is then localized by a non-biotin, dual polymer detection system. The external controls are reviewed for appropriate reactivity and found to be adequate. Results on the target cell population are indicated above. These tests have not been validated on decalcified tissue. This test was developed and the performance characteristics were validated by [facility]. It has not been cleared or approved by the U.S. Food and Drug Administration. MRV 07/24/2024 1531 Local . 01 Electronically signed: . Vianca Blackwell MD, Pathologist NPI- [id number] . 01 Gross description: . A. Received: In formalin with two identifiers and right breast Tissue, short tail superior, long tail lateral, double tail deep. Specimen: An oriented right lumpectomy with a short suture designating superior, a long suture designating lateral, and a double long suture designating deep, per the requisition. Weight: 35 g. Measurement: 4.9 cm superior to inferior, 7.2 cm medial to lateral, 2.2 cm anterior to posterior. Wire: Absent. Skin ellipse: Bravo and slightly nodular skin 3.9 x 1.4 cm. Margins: Inked as follows: Anterior (skin and adjacent anterior breast tissue) green, inferior blue, lateral orange, medial yellow, posterior black, superior red. Sliced: From lateral to medial into 13 slices. Lesion: One lesion identified. Description: An ill-defined, bravo, firm lesion. Size: 1.9 x 1.1 x 0.6 cm. Slices involved: Slices 8-10. Biopsy site: A Vision-Shape biopsy clip is found within the lesion at slice 9 and is directly adjacent to the black-inked margin. Distance to margins: The lesion grossly involves the black margin, 0.1 cm from the blue margin, 0.9 cm from the green-inked margin/skin, and greater than 1.0 cm from all remaining margins. Other: The remaining cut surfaces are yellow to white fibroadipose tissue with white fibrous tissue occupying less than 10% of the cut surface. Director New Product sections are submitted as follows: A1: Director New Product orange margin perpendicular. A2-A3: Composite slice 7, no lesion. A4-A5: Composite slice 8. A6-A7: Composite slice 9 with biopsy site and greatest dimension of lesion in slice 7. A8-A9: Composite slice 10. A10-A11: Composite slice 11, no lesion. A12: Director New Product slice 13, yellow margin perpendicular. Fixation: The specimen was removed on 07/17/2024 at 15:19. Time in formalin not provided. Cold ischemic time cannot be calculated. Total fixation time is approximately 46.5 hours. B. Received: In formalin, labeled with two identifiers and right axillary sentinel node biopsy, is a bravo to slightly blue lymph node candidate with a small amount of attached adipose tissue, all measuring 1.6 x 1.4 x 0.7 cm. A hemostatic clamp is identified on the exterior of the specimen. The specimen is serially sectioned and submitted entirely in cassettes B1-B2. . The specimen was removed on 07/17/2024 at 15:19. Time in formalin not provided. Cold ischemic time cannot be calculated. Total fixation time is approximately 46 hours. ([id number]) /FRR 07/18/2024 1410 Local . 01 Microscopic: . An immunohistochemistry panel is performed to further evaluate the cells of interest. The control stains show appropriate reactivity. . RESULTS: Block A1 CK5/6: Diminished staining. ER: Strongly positive. . The presence of strong ER positivity and diminished CK5/6 staining in the region of interest supports an interpretation of ductal carcinoma at these foci. . Blocks A5 and A7 CARMELLA: Positive at region of interest (margin). E-cadherin: Positive, consistent with ductal differentiation. . Blocks A9, A11 CARMELLA: Positive at region of interest (margin). . Blocks B1-B2 CARMELLA: Negative. . The absence of CARMELLA immunostaining supports an interpretation of negative for metastatic carcinoma. . . * This test was developed and the performance characteristics were validated by [employer]. It has not been cleared or approved by the U.S. Food and Drug Administration. . 01 Pathologist provided ICD-10: C50.311 . 01 CPT . 716764, R48803, N61384, 965507, 815814, 212671, 251690 Specimen Comment: A courtesy copy of this report has been sent to [facility] Performed at: [address] [address], [place], [place] [id number] MD Issa Vale MD Phone: [phone]
--- NOTE | 2024-07-17 | DI.MG.S_ITS ---
SPECIMEN: 07/17/2024 CLINICAL: Right breast specimen. Correlation is made to exams dated: 06/24/2024 mammogram, 06/04/2024 mammogram, and 11/26/2022 mammogram - [facility]. Right breast lumpectomy specimen contains the biopsy clip. IMPRESSION: SPECIMEN Right breast lumpectomy specimen contains the biopsy clip. This exam was interpreted at Station ID: [id number]. Chencho Betts M.D. slc/:07/28/2024 13:40:47
[2024-07-17 12:10] VITALS: BP 117/69; PULSE 70; RESP 16; TEMP 36.6; O2SAT 98; BMI 22.1
[2024-07-17] MEDS: ACETAMINOPHEN 325 MG TABLET 975 MG PO (12:32)
[2024-07-17] MEDS: LACTATED RINGERS 1,000 ML 42 ML IV (12:32)
--- NOTE | 2024-07-17 13:47 | PM.PREOP ---
Pre-operative Note COVID-19 COVID-19 status: Not tested Interval Note History & Physical reviewed/Exam performed by Physician: Yes Changes to H&P: No H&P completed within 30 days and has changed as indicated here:: no changes ASA Class (for procedural sedation): II
[2024-07-17] MEDS: CEFAZOLIN 2 GM/100 ML PREMIX 100 ML IV (13:59)
--- NOTE | 2024-07-17 14:21 | SUR.OPER ---
Supine on padded OR bed, head on pillow, arms secured on padded arm boards at <90 degrees abduction, legs uncrossed, safety belt at thigh, tape over blanket over lower legs.
[2024-07-17] MEDS: BUPIVACAINE LIPOSOME 266 MG/20 ML VIAL INJ (14:23)
[2024-07-17] MEDS: METHYLENE BLUE 50 MG/10 ML VIAL INJ (14:24)
[2024-07-17] MEDS: BUPIVACAINE 0.25% (PF) 30 ML, EPINEPHrine 0.15 MG INJ (14:25)
--- NOTE | 2024-07-17 15:19 | P.OP_ITS ---
Operative Date/Time/Diagnoses Date of procedure: 07/17/24 Time of procedure: 15:19 Pre-op diagnosis: right breast cancer Post-op diagnosis: same Procedure & Clinicians Procedure: 1. [place] lymph node biopsy, right deep axillary node with radiotracer and blue dye guidance 2. Right inner lower quadrant breast lumpectomy/quadrantectomy Same procedure as scheduled: Yes Indications: Right inner lower quadrant breast cancer Surgeon: Conner Davis Click Yes if Unassisted: Yes Anesthesia Type: General (LMA) Operative Notes Findings: 1. One deep axillary node that was blue and hot. No other blue nodes identified. No hot nodes within 10% of the sentinel node. 2. Clip contained within the specimen, the clip was palpable on the pectoralis fascia/deep margin Closure Type: primary Specimen(s): other (1. Right axillary sentinel node 2. Right breast lumpectomy; skin superficial, long tail lateral margin, short tail superior margin, double tail deep margin) Estimated Blood Loss (mL): 15 Blood products transfused: none Procedure in detail: Patient was sent to Radiology for preoperative radiotracer injection. No lymphoscintigraphy was performed preoperatively in the radiology department. LMA was induced. Patient was placed in the supine position with the arms out. Approximately 1 mL of methylene blue was infiltrated around the lesion and massaged into the breast tissue for 5 minutes. The right chest and arm were prepped and draped. Attention was 1st turned to the right axilla. There was some radiotracer evidence in the right axilla using a gamma probe. 10 mL of a mixture of 0.25% Marcaine with epinephrine and liposomal bound bupivacaine was infiltrated in the right axilla. A transverse incision was made overlying the right axillary skin. The fascia was opened. The deep axillary space was explored. Only 1 blue hot node was identified. Medium clips were used to clip the hilum of the node. Sharp scissors were used to retrieve the note. External to the body, the probe had radiotracer counts and a faint blue color. The rest of the axilla was explored and no additional radiotracer activity or blue nodes were identified. Deep axillary fascia was closed with 3-0 Vicryl. Skin was closed with 4-0 Monocryl. Attention was then turned to the known breast cancer. The right inner inferior quadrant of the breast was localized with additional 30 mL of a mixture of 0.25% Marcaine with epinephrine and liposomal bound bup ivacaine. An elliptical incision was made around the bruise and biopsy site. Bovie electrocautery was carried on the inferior aspect of the specimen down to the pectoralis muscle. The pectoralis fascia was removed from the pectoralis muscle using Bovie electrocautery. An inner lower quadrantectomy of the right breast was performed with Bovie electrocautery. The biopsy clip was palpable within the specimen. The superior margin was marked with a short tail. Lateral margin marked with a long tail. Deep margin marked with a double long tails. Skin ellison the superficial margin. X-ray was obtained which showed the clip in the middle of the specimen. The space was irrigated. Deep tissue was closed with 3-0 Vicryl. Skin was closed with 4-0 Monocryl and Dermabond. Patient tolerated the procedure well and was transferred to PACU in stable condition for anticipated same-day discharge. Complications: none Post-operative Condition: stable Disposition: PACU Plan for aftercare: home
[2024-07-17 15:25] VITALS: BP 115/69; PULSE 83; RESP 18; TEMP 36.6; O2SAT 96
[2024-07-17 15:31] VITALS: BP 126/68; PULSE 81; RESP 13; O2SAT 97
[2024-07-17 15:35] VITALS: BP 119/64; PULSE 87; RESP 16; O2SAT 98
[2024-07-17 15:40] VITALS: BP 126/69; PULSE 94; RESP 18; O2SAT 97
[2024-07-17 15:48] VITALS: BP 137/64; PULSE 79; RESP 11; TEMP 36.4; O2SAT 99
[2024-07-17] MEDS: OXYCODONE 5 MG/5 ML ORAL SOLUTION PO (15:55)
== END 2024-07-17 16:18 | disposition home or self-care (01) ==
PROVIDERS: Surgery; PCP Family Medicine; Referring Provider Surgery; Visit Provider Surgery
PROC: (CPT 19301; principal; 2024-07-17 14:30)
DX: C50.311 Malignant neoplasm of lower-inner quadrant of right female breast (principal); Z17.0 Estrogen receptor positive status [ER+]
CPT/HCPCS: 38525; 19301; 19125; 38792; 38900; 76098; A9541; C9290; J0171; J0690; J1100; J2405; J2704; J3010; Q9968

== ENCOUNTER → 2024-08-19 10:10 | Outpatient (CLI) | payer OTHER, SELFPAY ==
[2024-08-05 10:37] VITALS: BMI 26.1
--- NOTE | 2024-08-19 10:12 | DI.CT.S_ITS ---
PROCEDURE: CT LE LT W CON INDICATIONS: LEFT FOOT PAIN TECHNIQUE: Noncontrast 1-1.5 mm axial sections acquired from above the tibiotalar joint to the bottom of the calcaneus, with coronal and sagittal reformats. COMPARISON: [facility], CT, CT LE LT WO CON, 01/09/2024, 10:03. FINDINGS: Image quality: Diagnostic. Bones: Patient is status post interval extensive surgical fusion of 1st TMT joint, navicular cuneiform joint and medial and middle cuneiforms. Surgical plate and multiple surgical screws are seen along medial aspect of midfoot and hindfoot. No gross hardware loosening or failure. No acute fracture or dislocation. Patient's known longitudinal fracture through mid portion of navicular bone is not well seen on the current study due to presence of surgical hardware. There is suggestion of partial bony union at fracture site. Partial bony union is seen at talonavicular joint and navicular cuneiform joints. Near complete bony union at 1st TMT joint is seen. No suspicious intraosseous lesion. 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 Well-defined plantar calcaneal enthesophyte is seen. Soft tissues: Significant dorsal midfoot and forefoot soft tissue swelling and edema is seen. There is no discrete soft tissue mass or drainable fluid collection. No significant tibiotalar joint effusion. No full-thickness tendon rupture. No abnormal soft tissue calcifications. IMPRESSION: 1. Post surgical changes from extensive medial midfoot and hindfoot joint effusions with surgical hardware in place. No gross hardware loosening or failure. No acute fracture or dislocation. 2. Suggestion of interval healing at patient's known longitudinal fracture involving navicular bone. Partial bony union is also seen at talonavicular joint and navicular cuneiform joints. Near complete bony fusion is noted at 1st TMT joint. 3. Dorsal midfoot and forefoot soft tissue swelling and edema. No discrete drainable fluid collection. No full-thickness tendon rupture. Dictated by: Mychal Srivastava M.D. on 08/21/2024 at 14:51 Approved by: Mychal Srivastava M.D. on 08/21/2024 at 15:00
== END ==
PROVIDERS: PCP Family Medicine; Referring Provider Orthopaedic Surgery Foot and Ankle Surgery; Visit Provider Orthopaedic Surgery Foot and Ankle Surgery
DX: M25.475 Effusion, left foot (principal); M79.672 Pain in left foot; Z98.1 Arthrodesis status; M77.32 Calcaneal spur, left foot
CPT/HCPCS: 73700